=== PATIENT | female | born 1930 | race Caucasian/White ===

== ENCOUNTER 2018-04-10 11:34 | Emergency (ER) | payer MEDICARE ==
[~2018-04-10 11:34] MED LIST: Sodium Chloride 0.9% 1,000 ML BAG ONE; Sodium Chloride 0.9% 500 ML BAG ONE
[2018-04-10] MEDS ORDERED: Pantoprazole 40 MG VIAL ONE ×2 (12:21→12:23)
[2018-04-10 12:45] LABS: ALT (SGPT) 9 U/L (8-55); AST (SGOT) 15 U/L (5-34); Albumin 3.4 g/dL (3.4-4.8); Alkaline Phosphatase 76 U/L (40-150); Anion Gap 12 mmol/L (10-20); Anisocytosis SLIGHT = 6-15 cells (100X) (0-5/hpf); BUN (Urea Nitrogen) 55 mg/dL (9.8-20.1); Band 12 % (5-11); Bilirubin, Total 0.3 mg/dL (0.2-1.2); Calc. Creatinine Clearance 0 mL/min (70-130); Calcium 8.9 mg/dL (7.8-10.44); Carbon Dioxide 22 mmol/L (23-31); Chloride 110 mmol/L (98-107); Eosinophils 7 % (0-10); Estimated GFR-MDRD 46; Globulin 2.9 g/dL (2.4-3.5); Glucose 114 mg/dL (83-110); Hemoglobin 7.7 g/dL (12.0-16.0); INR-International Normal Ratio 1.2; Lymphocytes 11 % (21-51); MDiff Complete? YES; Mean Corpuscular HGB CONC 32.8 g/dL (32.0-36.0); Mean Corpuscular Hemoglobin 27.9 pg (27.0-31.0); Mean Platelet Volume 7.5 fL (7.4-10.4); Monocytes 5 % (0-10); Neutrophil 64 % (42-75); PLT Morphology Comment Appears Adequate; PTT 36.5 SEC (22.9-36.1); Platelet Count 233 thou/uL (130-400); Potassium 4.2 mmol/L (3.5-5.1); Protein, Total 6.3 g/dL (6.0-8.3); RBC Distribution Width 13.1 % (11.5-14.5); Red Blood Cell (RBC) Count 2.75 mill/uL (4.20-5.40); Sodium 140 mmol/L (136-145); White Blood Cell (WBC) Count 16.8 thou/uL (4.8-10.8)
[2018-04-10] MEDS ORDERED: Lidocaine 1% w/Epinephrine 1:100K 30 ML VIAL ONE (13:37)
== END 2018-04-10 13:23 | disposition short-term general hospital (02) ==
LOC: MADERS 11:34
DX: K92.2 Gastrointestinal hemorrhage, unspecified (principal); D64.9 Anemia, unspecified; I10 Essential (primary) hypertension; E78.5 Hyperlipidemia, unspecified; G47.00 Insomnia, unspecified; F32.9 Major depressive disorder, single episode, unspecified; K21.9 Gastro-esophageal reflux disease without esophagitis; Z79.899 Other long term (current) drug therapy
CPT/HCPCS: 36415; 80053; 82274; 85025; 85610; 85730; 86850; 86900; 86901; 96365; C9113; J2001; J7050

== ENCOUNTER 2018-04-25 17:00 | Inpatient (IN) | payer MEDICARE ==
[2018-04-25] MEDS ORDERED: AMOXicillin 250 MG CAP PO SCH (22:00)
[2018-04-25] MEDS ORDERED: hydrALAZINE 25 MG TAB PO SCH (22:00)
[2018-04-25] MEDS ORDERED: Pantoprazole 40 MG GRANULES PACKET PO SCH (22:15)
[2018-04-25] MEDS: AMOXicillin 250 MG CAP PO SCH (22:18)
[2018-04-26 05:58] LABS: #Basophils 0.2 thou/uL (0.0-0.2); #Eosinphils 0.2 thou/uL (0.0-0.7); #Lymphocytes 1.4 thou/uL (1.20-3.40); #Monocytes 1.2 thou/uL (0.11-0.59); #Neutrophils 8.2 thou/uL (1.40-6.50); %Basophils 1.6 % (0.0-1.0); %Eosinophils 2.1 % (0.0-10.0); %Lymphocytes 12.9 % (21.0-51.0); %Monocytes 10.2 % (0.0-10.0); %Neutrophils 73.2 % (42.0-75.0); Hemoglobin 10.2 g/dL (12.0-16.0); Mean Corpuscular HGB CONC 34.1 g/dL (32.0-36.0); Mean Corpuscular Hemoglobin 29.9 pg (27.0-31.0); Mean Corpuscular Volume 87.7 fL (78.0-98.0); Platelet Count 322 thou/uL (130-400); RBC Distribution Width 14.4 % (11.5-14.5); White Blood Cell (WBC) Count 11.2 thou/uL (4.8-10.8)
[2018-04-26 06:13] LABS: ALT (SGPT) 14 U/L (8-55); AST (SGOT) 21 U/L (5-34); Albumin 3.1 g/dL (3.4-4.8); Alkaline Phosphatase 69 U/L (40-150); Anion Gap 16 mmol/L (10-20); BUN (Urea Nitrogen) 22 mg/dL (9.8-20.1); Bilirubin, Total 0.4 mg/dL (0.2-1.2); Calc. Creatinine Clearance 33 mL/min (70-130); Calcium 8.9 mg/dL (7.8-10.44); Carbon Dioxide 25 mmol/L (23-31); Chloride 102 mmol/L (98-107); Estimated GFR-MDRD 58; Globulin 2.7 g/dL (2.4-3.5); Glucose 71 mg/dL (83-110); Potassium 3.5 mmol/L (3.5-5.1); Protein, Total 5.8 g/dL (6.0-8.3); Sodium 139 mmol/L (136-145)
[2018-04-26] MEDS: Spironolactone 25 MG TAB PO SCH (08:00)
[2018-04-26] MEDS ORDERED: Clarithromycin 250 MG/5 ML Oral Suspension ONE ×2 (08:00)
[2018-04-26] MEDS: AMOXicillin 250 MG CAP PO SCH ×2 (08:03→20:35)
[2018-04-26] MEDS: Amiodarone 200 MG TAB PO SCH (08:03)
[2018-04-26] MEDS: hydrALAZINE 25 MG TAB PO SCH ×3 (08:04→20:36)
[2018-04-26] MEDS: Hydrochlorothiazide 25 MG TAB PO SCH (08:04)
[2018-04-26] MEDS: Docusate Sodium 100 MG/10 ML UDCUP PO SCH (08:04)
[2018-04-26] MEDS: Aspirin 81 mg Enteric Coated Tablet PO SCH (08:04)
[2018-04-26] MEDS: Pantoprazole 40 MG GRANULES PACKET PO SCH ×2 (08:05→20:40)
[2018-04-26] MEDS: Clarithromycin 250 MG/5 ML Oral Suspension PO SCH ×2 (08:12→20:38)
[2018-04-26] MEDS ORDERED: Clarithromycin 500 MG TAB PO SCH (09:00)
[2018-04-26] MEDS ORDERED: Aspirin 81 mg Enteric Coated Tablet PO SCH (09:00)
--- NOTE | 2018-04-26 10:02 | HP ---
CHIEF COMPLAINT: Weakness. PRESENT ILLNESS: The patient is an 87-year-old white female who has a history of hypertension, dysph agia, gastroesophageal reflux disease who lives in her home alone, but has a daughter who comes in an d assists her. She ordinarily is independent of her ADLs. Over the last year she has had some gener al decline in her strength and appetite with some gradual weight loss. The patient presented to [facility] on 04/10/2018 with episodes of multiple bloody bowel movements, weakness and some alteration in her mental status. She was accompanied by her daughter and appeared very pale and weak and was take n to the emergency room and subsequently hospitalized at [facility] where she remained unt il 04/25/2018. The patient was found to have a severe gastrointestinal bleed with initial hemoglobin of 7.2. The patient required transfusions with 2 units of blood with stabilization of her H&H and h emoglobin improved to 10.1 and remained stable throughout the remainder of her hospitalization. Kirk nick, Dr. Hoang, reservoir engineering manager, saw her for the bleed and she underwent an EGD on 018. She was found to have 3 gastric ulcers in the antrum that showed no evidence of any recent blee ding. She had one at the pylorus also own with no signs of any bleeding. Her biopsy of the area was positive for H. pylori. She was initiated on treatment for H. pylori with clarithromycin, amoxicill in, and Protonix for a 2-week period beginning on 04/25/2018. The patient also underwent a colonosco py on 04/11/2018 and was found to have blood adherent to the colon from the rectum to the right colon . The source of the bleeding was felt to probably be either diverticular or small bowel, did not thi nk the bleeding was coming from the gastric ulcers. Her bleeding stopped and there was no recurrence . Her hospitalization was complicated by new onset atrial fibrillation that initially was treated wi th IV Cardizem and then was started on amiodarone with gradual conversion to a sinus rhythm. She was seen by mentally impaired teacher and an echocardiogram on 04/12/2018 showed atrial fib with an ejection fraction of 60-65%. She had enlargement of the left atrium and mitral and tricuspid regurgitation of a moder ate degree. This was controlled and she was discharged on amiodarone. The patient also had some fev er and also significant leukocytosis with a left shift. Dr. Lomeli, Infectious Disease, saw her and t hought that she might have a left basilar pneumonia that was causing this. She was treated with anti biotics and this gradually improved. The patient has had a long history of dysphagia that she is man aged with a change in her method of eating and types of food that she eats. She underwent a modified barium swallow that showed penetration, but no aspiration. She was placed on a mechanical soft diet with nectar thickened liquids with instructions to eat sitting upright, small bites and no straws. The patient was left extremely weak and had not really been up other than in a chair. She was transf erred to [facility] on the early evening of 04/25/2018 for purpose of physical therapy, occupat ional therapy in an effort to improve her strength, deconditioning, and functional capability with joseph hopes to returning to her home. The patient was seen early on the morning of 04/26/2018, said she was feeling a lot better, but just weak. PAST HISTORY: Hospitalized at [facility] from 04/10/2018 to 04/25/2018 for GI bleed requi ring transfusion with 2 units of blood. Source of the bleed was secondary to either diverticular or small bowel. She was also found to have gastric ulcer that was H-pyloric positive for which treatmen t was started on 04/25/2018. There was no evidence of bleeding from these ulcers. She also had the atrial fib. See specifics of this admission in the present illness. The patient has a history of se lisa hypertension that has been difficult to manage. She had new onset atrial fibrillation during re cent hospitalization, venous insufficiency, gastroesophageal reflux disease, hypothyroidism, hyperlip idemia, constipation, loss of weight. She has had an upper EGD with esophageal dilation in 2017. joseph has had a suprapubic urethropexy in 05/1993. She had surgery for a heel spur in 1993. PRESENT MEDICINES: Acetaminophen 325 mg 2 every 4 hours as needed, amiodarone 200 mg daily, amoxicil danna 1000 mg b.i.d. x14 days, started on 04/25/2018, Clarithromycin 500 mg b.i.d. for 14 days, started on 04/25/2018. Aspirin 81 mg daily, pantoprazole 40 mg b.i.d. x14 days, started on 04/25/2018, docu sate sodium 50 mg daily, hydralazine 75 mg t.i.d., metoprolol succinate 50 mg daily, spironolactone 1 2.5 mg daily. ALLERGIES: IODINE, INDOCIN, PRILOSEC, VALIUM, BACTRIM, AMBIEN, CODEINE, PENICILLIN G., CELEXA, PROZA C, COZAAR, ADALAT, BENAZEPRIL, PAXIL causes diarrhea. The benazepril causes a cough. The Adalat cau ses swelling and dizziness, Norvasc, dizziness, MiraLax, swelling. REVIEW OF SYSTEMS: GENERAL: The patient said she is weak and just has not been able to get up and do much of anything s tonie this recent hospitalization. HEAD AND NECK: No complaints. PULMONARY: No shortness of breath. CARDIOVASCULAR: No complaints. GASTROINTESTINAL: The patient said she has not had a bowel movement for the last day or so. The pat ient said she has not had any more blood in her stools. The patient said she has some trouble swallo wing, it seems to be worse if she turns leftward and better when she tucks her chin. ADLs: Ordinari ly the patient is ambulatory, but a little unsteady. She is usually able to dress herself and bathe herself. She is usually continent of urine and stools. HABITS: Alcohol none. Tobacco none. SOCIAL HISTORY: The patient lives alone. Her daughter lives close and checks on her and assists her if needed. CODE STATUS: Full code. PHYSICAL EXAMINATION: GENERAL: Shows an asthenic built 87-year-old white female who is alert, appears very weak, but in no acute distress. VITAL SIGNS: Temperature is 97.9, pulse 55, respirations 18, O2 sat 94%, blood pressure 191/78. Her weight is 107. HEAD: Normocephalic. EYES: Pupils are equal, round, and reactive. EARS: TMs are clear. NOSE: Normal. MOUTH AND THROAT: Normal. NECK: Carotids are equal and strong, no bruits. Thyroid not enlarged. LUNGS: Lungs are clear. There are some rales at the left posterior base. HEART: Regular rate with a grade 3/6 blowing systolic murmur heard best at the apex. ABDOMEN: Soft, no organomegaly, nor areas of tenderness. EXTREMITIES: No edema. SKIN: No rash. NEUROLOGIC: The patient is alert, oriented x3 with generalized weakness, but no focal weakness. IMPRESSION: 1. Generalized weakness and deconditioning with marked decline in her functional capability. A. Etiology recent hospitalization for upper gastrointestinal bleed. B. Now such that she requires assistance with all her ambulation and not ambulatory as of 04/26/2018 . 2. Hospitalized at [facility] from 04/10/2018 to 04/25/2018 for upper GI bleed, new onset atrial fibrillation, severe hypertension and dysphagia. 3. Recent gastrointestinal bleed. A. Required hospitalization from 04/10/2018 to 04/25/[address] [facility]. B. Required transfusion with 2 units of packed RBCs. C. Etiology secondary to probable diverticular versus small bowel hemorrhage. 4. Stable with hemoglobin of 10.1 as of 04/26/2018. 5. Gastric ulcers. A. EGD on 04/11/2018 showed gastric ulcers x3 at the antrum and 1 at the pylorus with no evidence of bleeding or recent bleeding. B. Biopsy positive for H. pylori. C. Treatment initiated with amoxicillin 1000 mg b.i.d. x2 weeks, clarithromycin 500 mg b.i.d. for 2 weeks, Protonix 40 mg b.i.d. for 2 weeks on 04/25/2018. 6. Diverticular disease of the colon. A. EGD on 04/11/2018 showed extensive blood throughout the colon secondary to probable recent divert icular bleed or a small bowel bleed. B. Presently asymptomatic. No evidence of bleeding and hemoglobin stable as of 04/26/2018. 7. Atrial fibrillation. A. New onset during hospitalization at [facility] on 04/10/2018. B. Managed with amiodarone and metoprolol with conversion to a sinus rhythm. C. Not a candidate for anticoagulation due to recent GI bleed. 8. Severe hypertension. 9. Dysphagia. A. A modified barium swallow on 04/17/2018 showed penetration, but no aspiration. B. Managed with mechanical soft diet with nectar thickened liquids and no straws. 10. Severe hypertension. 11. Gastroesophageal reflux disease. 12. Hypothyroidism. PLAN: The patient has been admitted to [facility] for the purpose of physical therapy and occu pational therapy in an effort to try to improve her strength, deconditioning, stabilize her gait and improve her general functional capability via her hope that she could improve such that she can retur n to her home. The patient is being treated for H. pylori and has a 2 week course with amoxicillin, clarithromycin, and Protonix was started on 04/25/2018 and will be given for a 14-day period. We jd l continue her routine medication, monitor blood pressure. Her lab this morning showed a H&H of 10.2 and 29.8, white cell count 11,200 with 73% segs, 13% lympho cytes, and a platelet count of 322,000. Her sodium was 139, potassium 3.5, BUN 22, creatinine 0.93, GFR 58, glucose 71, albumin 3.1. CODE STATUS: Full code.
[2018-04-26] MEDS ORDERED: Sterile Water Irrigation 250 ML BOT ONE (11:41)
[2018-04-26] MEDS: Acetaminophen 325 MG TAB PO PRN (20:41)
[2018-04-27] MEDS: Levothyroxine Sodium 50 MCG TAB PO SCH (05:12)
[2018-04-27] MEDS: Aspirin 81 mg Enteric Coated Tablet PO SCH (08:44)
[2018-04-27] MEDS: Spironolactone 25 MG TAB PO SCH (08:44)
[2018-04-27] MEDS: Amiodarone 200 MG TAB PO SCH (08:44)
[2018-04-27] MEDS: Hydrochlorothiazide 25 MG TAB PO SCH (08:45)
[2018-04-27] MEDS: AMOXicillin 250 MG CAP PO SCH ×2 (08:45→20:38)
[2018-04-27] MEDS: Clarithromycin 250 MG/5 ML Oral Suspension PO SCH ×2 (08:45→20:41)
[2018-04-27] MEDS: Docusate Sodium 100 MG/10 ML UDCUP PO SCH (08:45)
[2018-04-27] MEDS: hydrALAZINE 25 MG TAB PO SCH ×3 (08:45→20:38)
[2018-04-27] MEDS: Pantoprazole 40 MG GRANULES PACKET PO SCH ×2 (08:46→20:38)
--- NOTE | 2018-04-27 09:48 | PRG ---
DATE OF SERVICE: 04/27/2018 SUBJECTIVE: The patient said she is feeling a little better today. She did walk a little bit with p hysical therapy yesterday. OBJECTIVE: GENERAL: The patient is sitting up in a bedside chair. She is smiling, looks better. She appears i n no distress. Her temperature is 98, pulse 51, blood pressure was 190/81 last evening. This mornin g's is pending. O2 sat 94% on room air. Lungs are clear. Heart, regular rate. Extremities, no mandeep ma. ASSESSMENT: 1. Generalized weakness and deconditioning with marked decline in her functional capability. A. Etiology recent hospitalization for upper gastrointestinal bleed. B. Requiring assistance with all her ADLs as of 04/26/2018. C. Improved as of 04/27/2018. 2. Hospitalized at [facility] from 04/10/2018 to 04/25/2018 for upper GI bleed, new onset atrial fibrillation, severe hypertension and dysphagia. 3. Recent gastrointestinal bleed. A. Required hospitalization from 04/10/2018 to 04/25/2018 at [facility]. B. Required transfusion with 2 units of packed RBCs. C. Etiology secondary to probable diverticular versus small bowel hemorrhage. 4. Stable with hemoglobin of 10.1 as of 04/26/2018. 5. Gastric ulcers. A. EGD on 04/11/2018 showed gastric ulcers x3 at the antrum and 1 at the pylorus with no evidence of bleeding or recent bleeding. B. Biopsy positive for H. pylori. C. Treatment initiated with amoxicillin 1000 mg b.i.d. x2 weeks, clarithromycin 500 mg b.i.d. for 2 weeks, Protonix 40 mg b.i.d. for 2 weeks on 04/25/2018. 6. Diverticular disease of the colon. A. EGD on 04/11/2018 showed extensive blood throughout the colon secondary to probable recent divert icular bleed or a small bowel bleed. B. Presently asymptomatic. No evidence of bleeding and hemoglobin stable as of 04/26/2018. 7. Atrial fibrillation. A. New onset during hospitalization at [facility] on 04/10/2018. B. Managed with amiodarone and metoprolol with conversion to a sinus rhythm. C. Not a candidate for anticoagulation due to recent GI bleed. 8. Severe hypertension. A. Difficult to control with many drug allergies. 9. Dysphagia. A. A modified barium swallow on 04/17/2018 showed penetration, but no aspiration. B. Managed with mechanical soft diet with nectar thickened liquids and no straws. 10. Severe hypertension. 11. Gastroesophageal reflux disease. 12. Hypothyroidism. PLAN: Continue present care. Continue PT and OT.
[2018-04-28] MEDS: Levothyroxine Sodium 50 MCG TAB PO SCH (05:15)
[2018-04-28] MEDS: Docusate Sodium 100 MG/10 ML UDCUP PO SCH (07:51)
[2018-04-28] MEDS: Aspirin 81 mg Enteric Coated Tablet PO SCH (07:51)
[2018-04-28] MEDS: Clarithromycin 250 MG/5 ML Oral Suspension PO SCH ×2 (07:51→20:21)
[2018-04-28] MEDS: AMOXicillin 250 MG CAP PO SCH ×2 (07:51→20:20)
[2018-04-28] MEDS: Amiodarone 200 MG TAB PO SCH (07:51)
[2018-04-28] MEDS: Spironolactone 25 MG TAB PO SCH (07:51)
[2018-04-28] MEDS: Hydrochlorothiazide 25 MG TAB PO SCH (07:52)
[2018-04-28] MEDS: hydrALAZINE 25 MG TAB PO SCH ×3 (07:52→20:20)
[2018-04-28] MEDS: Pantoprazole 40 MG GRANULES PACKET PO SCH ×2 (07:52→20:20)
--- NOTE | 2018-04-28 15:15 | PRG ---
DATE OF SERVICE: 04/28/2018 SUBJECTIVE: The patient said she does not feel as well today, nothing specific. She denies any shor tness of breath or any chest pain. Physical therapy is working with her and yesterday she walked up to 150 feet twice. She required minimum to moderate assistance with transfers. OBJECTIVE: GENERAL: The patient is sitting up in a chair, is alert, appears comfortable in no distress. VITAL SIGNS: Shows a temperature of 97.6, pulse 49, blood pressure 168/70, earlier 121/58, respirati ons 20, O2 sat 91%-95% on room air. LUNGS: Clear. HEART: Regular rate. EXTREMITIES: No edema. ASSESSMENT: 1. Generalized weakness and deconditioning with marked decline in her functional capability. A. Etiology recent hospitalization for upper gastrointestinal bleed. B. Requiring assistance with all her ADLs as of 04/26/2018. C. Improved, walking up to 150 feet with a rolling walker. Transferring with minimum to moderate as sistance as of 04/28/2018. 2. Hospitalized at [facility] from 04/10/2018 to 04/25/2018 for upper GI bleed, new onset atrial fibrillation, severe hypertension and dysphagia. 3. Recent gastrointestinal bleed. A. Required hospitalization from 04/10/2018 to 04/25/2018 at [facility]. B. Required transfusion with 2 units of packed RBCs. C. Etiology secondary to probable diverticular versus small bowel hemorrhage. D. Asymptomatic. No evidence of any bleeding as of 04/28/2018. 4. Stable with hemoglobin of 10.1 as of 04/26/2018. 5. Gastric ulcers. A. EGD on 04/11/2018 showed gastric ulcers x3 at the antrum and 1 at the pylorus with no evidence of bleeding or recent bleeding. B. Biopsy positive for H. pylori. C. Treatment initiated with amoxicillin 1000 mg b.i.d. x2 weeks, clarithromycin 500 mg b.i.d. for 2 weeks, Protonix 40 mg b.i.d. for 2 weeks on 04/25/2018. 6. Diverticular disease of the colon. A. EGD on 04/11/2018 showed extensive blood throughout the colon secondary to probable recent divert icular bleed or a small bowel bleed. B. Presently asymptomatic. No evidence of bleeding and hemoglobin stable as of 04/26/2018. 7. Atrial fibrillation. A. New onset during hospitalization at [facility] on 04/10/2018. B. Managed with amiodarone and metoprolol with conversion to a sinus rhythm. C. Not a candidate for anticoagulation due to recent GI bleed. D. Rate controlled with mild bradycardia. [employer] Pre Cooker encouraged continued use of the metoprolol t o ensure rate is controlled. No symptoms associated with bradycardia as of 04/28/2018. 8. Severe hypertension. A. Controlled, improved as of 04/28/2018. 9. Dysphagia. A. A modified barium swallow on 04/17/2018 showed penetration, but no aspiration. B. Managed with mechanical soft diet with nectar thickened liquids and no straws. 10. Severe hypertension. 11. Gastroesophageal reflux disease. 12. Hypothyroidism. PLAN: Continue present care. Continue PT.
[2018-04-29] MEDS: Levothyroxine Sodium 50 MCG TAB PO SCH (05:41)
[2018-04-29] MEDS: Pantoprazole 40 MG GRANULES PACKET PO SCH ×2 (09:21→20:24)
[2018-04-29] MEDS: Aspirin 81 mg Enteric Coated Tablet PO SCH (09:21)
[2018-04-29] MEDS: Hydrochlorothiazide 25 MG TAB PO SCH (09:21)
[2018-04-29] MEDS: Spironolactone 25 MG TAB PO SCH (09:22)
[2018-04-29] MEDS: hydrALAZINE 25 MG TAB PO SCH ×3 (09:22→20:24)
[2018-04-29] MEDS: Amiodarone 200 MG TAB PO SCH (09:23)
[2018-04-29] MEDS: AMOXicillin 250 MG CAP PO SCH ×2 (09:23→20:24)
[2018-04-29] MEDS: Clarithromycin 250 MG/5 ML Oral Suspension PO SCH ×2 (09:25→20:38)
[2018-04-29] MEDS: Docusate Sodium 100 MG/10 ML UDCUP PO SCH (09:33)
[2018-04-29] MEDS ORDERED: Clarithromycin 250 MG/5 ML Oral Suspension ONE (20:34)
[2018-04-30] MEDS: Levothyroxine Sodium 50 MCG TAB PO SCH (05:22)
[2018-04-30] MEDS: Pantoprazole 40 MG GRANULES PACKET PO SCH ×2 (09:24→20:45)
[2018-04-30] MEDS: Aspirin 81 mg Enteric Coated Tablet PO SCH (09:24)
[2018-04-30] MEDS: AMOXicillin 250 MG CAP PO SCH ×2 (09:24→20:33)
[2018-04-30] MEDS: Amiodarone 200 MG TAB PO SCH (09:24)
[2018-04-30] MEDS: hydrALAZINE 25 MG TAB PO SCH ×3 (09:24→20:33)
[2018-04-30] MEDS: Docusate Sodium 100 MG/10 ML UDCUP PO SCH (09:25)
[2018-04-30] MEDS: Spironolactone 25 MG TAB PO SCH (09:25)
[2018-04-30] MEDS: Hydrochlorothiazide 25 MG TAB PO SCH (09:25)
[2018-04-30] MEDS: Clarithromycin 250 MG/5 ML Oral Suspension PO SCH ×2 (09:27→20:35)
[2018-05-01] MEDS: Levothyroxine Sodium 50 MCG TAB PO SCH (05:24)
[2018-05-01] MEDS: Spironolactone 25 MG TAB PO SCH (08:20)
[2018-05-01] MEDS: Amiodarone 200 MG TAB PO SCH (08:20)
[2018-05-01] MEDS: AMOXicillin 250 MG CAP PO SCH ×2 (08:20→20:07)
[2018-05-01] MEDS: Hydrochlorothiazide 25 MG TAB PO SCH (08:21)
[2018-05-01] MEDS: hydrALAZINE 25 MG TAB PO SCH ×3 (08:21→20:09)
[2018-05-01] MEDS: Aspirin 81 mg Enteric Coated Tablet PO SCH (08:21)
[2018-05-01] MEDS: Clarithromycin 250 MG/5 ML Oral Suspension PO SCH ×2 (08:29→20:08)
--- NOTE | 2018-05-01 09:30 | PRG ---
DATE OF SERVICE: 05/01/2018 SUBJECTIVE: The patient said she is doing okay, but complaining of her feet being a little sore. Sh e has had no swelling or redness. OBJECTIVE: The patient is alert, appears comfortable, but very weak. Her temperature is 98.9, pulse 58, blood pressure 158/71, respirations 16, O2 sat 94% on room air. Lungs are clear. Heart, regula r rate. Extremities, no edema. Feet have no swelling. ASSESSMENT: 1. Generalized weakness and deconditioning with marked decline in her functional capability. A. Etiology recent hospitalization for upper gastrointestinal bleed. B. Requiring assistance with all her ADLs as of 04/26/2018. C. Improved, walking up to 150 feet with a rolling walker. Transferring with minimum to moderate as sistance as of 05/01/2018. 2. Hospitalized at [facility] from 04/10/2018 to 04/25/2018 for upper GI bleed, new onset atrial fibrillation, severe hypertension and dysphagia. 3. Recent gastrointestinal bleed. A. Required hospitalization from 04/10/2018 to 04/25/2018 at [facility]. B. Required transfusion with 2 units of packed RBCs. C. Etiology secondary to probable diverticular versus small bowel hemorrhage. D. Asymptomatic. No evidence of any bleeding as of 05/01/2018. 4. Stable with hemoglobin of 10.1 as of 04/26/2018. 5. Gastric ulcers. A. EGD on 04/11/2018 showed gastric ulcers x3 at the antrum and 1 at the pylorus with no evidence of bleeding or recent bleeding. B. Biopsy positive for H. pylori. C. Treatment initiated with amoxicillin 1000 mg b.i.d. x2 weeks, clarithromycin 500 mg b.i.d. for 2 weeks, Protonix 40 mg b.i.d. for 2 weeks on 04/25/2018. 6. Diverticular disease of the colon. A. EGD on 04/11/2018 showed extensive blood throughout the colon secondary to probable recent divert icular bleed or a small bowel bleed. B. Presently asymptomatic. No evidence of bleeding and hemoglobin stable as of 04/26/2018. 7. Atrial fibrillation. A. New onset during hospitalization at [facility] on 04/10/2018. B. Managed with amiodarone and metoprolol with conversion to a sinus rhythm. C. Not a candidate for anticoagulation due to recent GI bleed. D. Rate controlled with mild bradycardia. [employer] Hospitalist encouraged continued use of the metoprolol t o ensure rate is controlled. No symptoms associated with bradycardia as of 04/28/2018. 8. Severe hypertension. A. Controlled, improved as of 04/28/2018. 9. Dysphagia. A. A modified barium swallow on 04/17/2018 showed penetration, but no aspiration. B. Managed with mechanical soft diet with nectar thickened liquids and no straws. 11. Gastroesophageal reflux disease. 12. Hypothyroidism. PLAN: Continue present care. The patient has Tylenol that she can use when her feet are sore. This exam did not disclose any abnormality. Source may be from neuropathy.
--- NOTE | 2018-05-01 09:30 | PRG ---
DATE OF SERVICE: 04/29/2018 SUBJECTIVE: The patient said she slept good last night. Yesterday, she worked with physical therapy and was able to walk up to 150 feet twice with a walker with wheels. She requires minimum to modera te assistance with transfer. OBJECTIVE: GENERAL: The patient is lying in bed, alert, looks comfortable, in no distress. VITAL SIGNS: Shows a temperature of 97.9, pulse 51, respirations 18, O2 sat 96% on room air, blood p ressure 192/80. She has not had her morning meds. Last evening, pressure 132/78. LUNGS: Clear. HEART: Regular rate. EXTREMITIES: No edema. (01:58) ASSESSMENT: 1. Generalized weakness and deconditioning with marked decline in her functional capability. A. Etiology recent hospitalization for upper gastrointestinal bleed. B. Requiring assistance with all her ADLs as of 04/26/2018. C. Improved, walking up to 150 feet with a rolling walker. Transferring with minimum to moderate as sistance as of 04/29/2018. 2. Hospitalized at [facility] from 04/10/2018 to 04/25/2018 for upper GI bleed, new onset atrial fibrillation, severe hypertension and dysphagia. 3. Recent gastrointestinal bleed. A. Required hospitalization from 04/10/2018 to 04/25/2018 at [facility]. B. Required transfusion with 2 units of packed RBCs. C. Etiology secondary to probable diverticular versus small bowel hemorrhage. D. Asymptomatic. No evidence of any bleeding as of 04/28/2018. 4. Stable with hemoglobin of 10.1 as of 04/26/2018. 5. Gastric ulcers. A. EGD on 04/11/2018 showed gastric ulcers x3 at the antrum and 1 at the pylorus with no evidence of bleeding or recent bleeding. B. Biopsy positive for H. pylori. C. Treatment initiated with amoxicillin 1000 mg b.i.d. x2 weeks, clarithromycin 500 mg b.i.d. for 2 weeks, Protonix 40 mg b.i.d. for 2 weeks on 04/25/2018. 6. Diverticular disease of the colon. A. EGD on 04/11/2018 showed extensive blood throughout the colon secondary to probable recent divert icular bleed or a small bowel bleed. B. Presently asymptomatic. No evidence of bleeding and hemoglobin stable as of 04/26/2018. 7. Atrial fibrillation. A. New onset during hospitalization at [facility] on 04/10/2018. B. Managed with amiodarone and metoprolol with conversion to a sinus rhythm. C. Not a candidate for anticoagulation due to recent GI bleed. D. Rate controlled with mild bradycardia. Lining Marker encouraged continued use of the metoprolol t o ensure rate is controlled. No symptoms associated with bradycardia as of 04/29/2018. 8. Severe hypertension. A. Controlled, improved as of 04/28/2018. 9. Dysphagia. A. A modified barium swallow on 04/17/2018 showed penetration, but no aspiration. B. Managed with mechanical soft diet with nectar thickened liquids and no straws. 10. Gastroesophageal reflux disease. 11. Hypothyroidism. PLAN: Continue present care. Continue PT and OT.
[2018-05-01] MEDS: Docusate Sodium 100 MG/10 ML UDCUP PO SCH (10:56)
[2018-05-02] MEDS: Levothyroxine Sodium 50 MCG TAB PO SCH (05:42)
[2018-05-02] MEDS: Spironolactone 25 MG TAB PO SCH (08:22)
[2018-05-02] MEDS: Amiodarone 200 MG TAB PO SCH (08:23)
[2018-05-02] MEDS: Docusate Sodium 100 MG/10 ML UDCUP PO SCH (08:23)
[2018-05-02] MEDS: Clarithromycin 250 MG/5 ML Oral Suspension PO SCH ×2 (08:23→20:32)
[2018-05-02] MEDS: hydrALAZINE 25 MG TAB PO SCH ×3 (08:23→20:32)
[2018-05-02] MEDS: Aspirin 81 mg Enteric Coated Tablet PO SCH (08:23)
[2018-05-02] MEDS: AMOXicillin 250 MG CAP PO SCH ×2 (08:23→20:31)
[2018-05-02] MEDS: Hydrochlorothiazide 25 MG TAB PO SCH (08:24)
--- NOTE | 2018-05-02 10:36 | PRG ---
DATE OF SERVICE: 05/02/2018 SUBJECTIVE: The patient said she is feeling better. She wants to go home, but she is not able to ta ke care of herself. Her daughter is with her and said that she lives by herself and she comes and he lps. Her daughter still works. The patient is not strong enough to manage and take care of herself. The patient and daughter also said that after visiting with them about her code status that she is a DNR. OBJECTIVE: The patient looks a little better. She appears in no distress. Her temperature is 98.1, pulse 54, blood pressure 195/80, earlier was 161/74, respirations 16, O2 sat 92% on room air. Lungs were clear. Heart, regular rate with a grade 3/6 systolic ejection murmur heard best at the base. The patient has a systolic murmur, grade 3/6 that is heard at the base and apex of the heart. [place]ch[place] rdiogram that was done on 04/12/2018 had shown mild mitral regurgitation, mild to moderate tricuspid regurgitation, EJ of 60-65% and moderately to severe dilated left atrium and diastolic dysfunction. Extremities, no edema. ASSESSMENT: 1. Generalized weakness and deconditioning with marked decline in her functional capability. A. Etiology recent hospitalization for upper gastrointestinal bleed. B. Requiring assistance with all her ADLs as of 04/26/2018. C. Improved, but still not able to manage herself at home with her present functional capabilities. 2. Hospitalized at [facility] from 04/10/2018 to 04/25/2018 for upper GI bleed, new onset atrial fibrillation, severe hypertension and dysphagia. 3. Recent gastrointestinal bleed. A. Required hospitalization from 04/10/2018 to 04/25/2018 at [facility]. B. Required transfusion with 2 units of packed RBCs. C. Etiology secondary to probable diverticular versus small bowel hemorrhage. D. Asymptomatic. No evidence of any bleeding as of 05/01/2018. 4. Stable with hemoglobin of 10.1 as of 04/26/2018. 5. Gastric ulcers. A. EGD on 04/11/2018 showed gastric ulcers x3 at the antrum and 1 at the pylorus with no evidence of bleeding or recent bleeding. B. Biopsy positive for H. pylori. C. Treatment initiated with amoxicillin 1000 mg b.i.d. x2 weeks, clarithromycin 500 mg b.i.d. for 2 weeks, Protonix 40 mg b.i.d. for 2 weeks on 04/25/2018. 6. Diverticular disease of the colon. A. EGD on 04/11/2018 showed extensive blood throughout the colon secondary to probable recent divert icular bleed or a small bowel bleed. B. Presently asymptomatic. No evidence of bleeding and hemoglobin stable as of 04/26/2018. 7. Atrial fibrillation. A. New onset during hospitalization at [facility] on 04/10/2018. B. Managed with amiodarone and metoprolol with conversion to a sinus rhythm. C. Not a candidate for anticoagulation due to recent GI bleed. D. Rate controlled with mild bradycardia. Lawn Service Supervisor encouraged continued use of the metoprolol t o ensure rate is controlled. No symptoms associated with bradycardia as of 04/28/2018. 8. Severe hypertension. A. The patient still has periodic episodes of marked elevation of BP as of 05/02/2018. 9. Dysphagia. A. A modified barium swallow on 04/17/2018 showed penetration, but no aspiration. B. Managed with mechanical soft diet with nectar thickened liquids and no straws. 11. Gastroesophageal reflux disease. 12. Hypothyroidism. 13. Diastolic dysfunction. A. No evidence of acute congestive heart failure. PLAN: I visited with patient and her daughter, indicated that the patient's functional capability is not to where she could manage at her home by herself. The patient needs continue PT, OT once she do es go home, then she will need to have someone there with her to assist her and assist with not only her ADLs, but her instrumental ADLs. Continue PT, OT. Also, the patient has a DNR after visiting with her daughter and patient.
[2018-05-02] MEDS ORDERED: Clarithromycin 250 MG/5 ML Oral Suspension ONE (20:44)
[2018-05-03] MEDS: Levothyroxine Sodium 50 MCG TAB PO SCH (05:15)
[2018-05-03] MEDS: Hydrochlorothiazide 25 MG TAB PO SCH (08:14)
[2018-05-03] MEDS: Spironolactone 25 MG TAB PO SCH (08:14)
[2018-05-03] MEDS: AMOXicillin 250 MG CAP PO SCH ×2 (08:14→20:30)
[2018-05-03] MEDS: Docusate Sodium 100 MG/10 ML UDCUP PO SCH (08:14)
[2018-05-03] MEDS: Aspirin 81 mg Enteric Coated Tablet PO SCH (08:16)
[2018-05-03] MEDS: Amiodarone 200 MG TAB PO SCH (08:16)
[2018-05-03] MEDS: hydrALAZINE 25 MG TAB PO SCH ×3 (08:16→20:31)
[2018-05-03] MEDS: Clarithromycin 250 MG/5 ML Oral Suspension PO SCH ×2 (08:16→20:32)
--- NOTE | 2018-05-03 11:23 | PRG ---
DATE OF SERVICE: 05/03/2018 SUBJECTIVE: The patient said she is doing okay. She had no complaint. She said she did not rest as well last night. She continued to work with physical therapy. She and her daughter are considering post-hospital arrangements. OBJECTIVE: The patient lying in bed, alert, appears comfortable in no distress. Temp 97.4, pulse 72 , blood pressure 152/60, respirations 16, O2 sat 95% on room air. Lungs are clear. Heart, regular r ate. Extremities, no edema. ASSESSMENT: 1. Generalized weakness and deconditioning with marked decline in her functional capability. A. Etiology recent hospitalization for upper gastrointestinal bleed. B. Requiring assistance with all her ADLs as of 04/26/2018. C. Improved, but still not able to manage herself at home with her present functional capabilities a s of 05/03/2018. 2. Hospitalized at [facility] from 04/10/2018 to 04/25/2018 for upper GI bleed, new onset atrial fibrillation, severe hypertension and dysphagia. 3. Recent gastrointestinal bleed. A. Required hospitalization from 04/10/2018 to 04/25/[address] [facility]. B. Required transfusion with 2 units of packed RBCs. C. Etiology secondary to probable diverticular versus small bowel hemorrhage. D. Asymptomatic. No evidence of any bleeding as of 05/01/2018. 4. Stable with hemoglobin of 10.1 as of 04/26/2018. 5. Gastric ulcers. A. EGD on 04/11/2018 showed gastric ulcers x3 at the antrum and 1 at the pylorus with no evidence of bleeding or recent bleeding. B. Biopsy positive for H. pylori. C. Treatment initiated with amoxicillin 1000 mg b.i.d. x2 weeks, clarithromycin 500 mg b.i.d. for 2 weeks, Protonix 40 mg b.i.d. for 2 weeks on 04/25/2018. 6. Diverticular disease of the colon. A. EGD on 04/11/2018 showed extensive blood throughout the colon secondary to probable recent divert icular bleed or a small bowel bleed. B. Presently asymptomatic. No evidence of bleeding and hemoglobin stable as of 05/03/2018. 7. Atrial fibrillation. A. New onset during hospitalization at [facility] on 04/10/2018. B. Managed with amiodarone and metoprolol with conversion to a sinus rhythm. C. Not a candidate for anticoagulation due to recent GI bleed. D. Rate controlled with mild bradycardia. Theatre Professor encouraged continued use of the metoprolol t o ensure rate is controlled. No symptoms associated with bradycardia as of 04/28/2018. 8. Severe hypertension. A. Controlled, improved as of 05/03/2018. 9. Dysphagia. A. A modified barium swallow on 04/17/2018 showed penetration, but no aspiration. B. Managed with mechanical soft diet with nectar thickened liquids and no straws. 11. Gastroesophageal reflux disease. 12. Hypothyroidism. 13. Diastolic dysfunction. A. No evidence of acute congestive heart failure as of 05/03/2018. PLAN: Continue PT and OT.
[2018-05-03 18:54] VITALS: BMI 21.3
[2018-05-04] MEDS: Levothyroxine Sodium 50 MCG TAB PO SCH (05:18)
[2018-05-04] MEDS: Spironolactone 25 MG TAB PO SCH (08:07)
[2018-05-04] MEDS: Aspirin 81 mg Enteric Coated Tablet PO SCH (08:08)
[2018-05-04] MEDS: AMOXicillin 250 MG CAP PO SCH ×2 (08:08→20:44)
[2018-05-04] MEDS: Amiodarone 200 MG TAB PO SCH (08:08)
[2018-05-04] MEDS: Clarithromycin 250 MG/5 ML Oral Suspension PO SCH ×2 (08:08→20:45)
[2018-05-04] MEDS: Docusate Sodium 100 MG/10 ML UDCUP PO SCH (08:09)
[2018-05-04] MEDS: hydrALAZINE 25 MG TAB PO SCH ×3 (08:09→20:44)
[2018-05-04] MEDS: Hydrochlorothiazide 25 MG TAB PO SCH (08:13)
--- NOTE | 2018-05-04 10:05 | PRG ---
DATE OF SERVICE: 05/04/2018 SUBJECTIVE: The patient says she is doing okay. She is making some progress with physical therapy, but still needs some little contact assistance with walking. She also still needs some help with her transfers. OBJECTIVE: The patient is sitting up in a chair. She appears comfortable, in no distress. Vital si gns show a temperature 98.4, pulse 55, blood pressure 168/70, respirations 16, O2 sat 93%. Lungs stevan ar. Heart, regular rate. Extremities, no edema. ASSESSMENT: 1. Generalized weakness and deconditioning with marked decline in her functional capability. A. Etiology recent hospitalization for upper gastrointestinal bleed. B. Requiring assistance with all her ADLs as of 04/26/2018. C. Improved, still requires some mild contact assistance while walking, but this is improving. She s till requires some assistance with transfers as of 05/04/2018. 2. Hospitalized at [facility] from 04/10/2018 to 04/25/2018 for upper GI bleed, new onset atrial fibrillation, severe hypertension and dysphagia. 3. Recent gastrointestinal bleed. A. Required hospitalization from 04/10/2018 to 04/25/2018 at [facility]. B. Required transfusion with 2 units of packed RBCs. C. Etiology secondary to probable diverticular versus small bowel hemorrhage. D. Asymptomatic. No evidence of any bleeding as of 05/04/2018. 4. Stable with hemoglobin of 10.1 as of 04/26/2018. 5. Gastric ulcers. A. EGD on 04/11/2018 showed gastric ulcers x3 at the antrum and 1 at the pylorus with no evidence of bleeding or recent bleeding. B. Biopsy positive for H. pylori. C. Treatment initiated with amoxicillin 1000 mg b.i.d. x2 weeks, clarithromycin 500 mg b.i.d. for 2 weeks, Protonix 40 mg b.i.d. for 2 weeks on 04/25/2018. 6. Diverticular disease of the colon. A. EGD on 04/11/2018 showed extensive blood throughout the colon secondary to probable recent divert icular bleed or a small bowel bleed. B. Presently asymptomatic. No evidence of bleeding and hemoglobin stable as of 05/03/2018. 7. Atrial fibrillation. A. New onset during hospitalization at [facility] on 04/10/2018. B. Managed with amiodarone and metoprolol with conversion to a sinus rhythm. C. Not a candidate for anticoagulation due to recent GI bleed. D. Rate controlled with mild bradycardia. Criminal Researcher encouraged continued use of the metoprolol t o ensure rate is controlled. No symptoms associated with bradycardia as of 04/28/2018. 8. Severe hypertension. A. Controlled, improved as of 05/04/2018. 9. Dysphagia. A. A modified barium swallow on 04/17/2018 showed penetration, but no aspiration. B. Managed with mechanical soft diet with nectar thickened liquids and no straws. 11. Gastroesophageal reflux disease. 12. Hypothyroidism. 13. Diastolic dysfunction. A. No evidence of acute congestive heart failure as of 05/04/2018. PLAN: Continue present care. Continue PT and OT.
[2018-05-05] MEDS: Levothyroxine Sodium 50 MCG TAB PO SCH (06:21)
[2018-05-05] MEDS: Docusate Sodium 100 MG/10 ML UDCUP PO SCH (07:47)
[2018-05-05] MEDS: Spironolactone 25 MG TAB PO SCH (07:51)
[2018-05-05] MEDS: hydrALAZINE 25 MG TAB PO SCH ×3 (07:55→21:20)
[2018-05-05] MEDS: Aspirin 81 mg Enteric Coated Tablet PO SCH (08:00)
[2018-05-05] MEDS: Hydrochlorothiazide 25 MG TAB PO SCH (08:01)
[2018-05-05] MEDS: Amiodarone 200 MG TAB PO SCH (08:02)
--- NOTE | 2018-05-05 11:01 | PRG ---
DATE OF SERVICE: 05/05/2018 SUBJECTIVE: The patient has been up in a chair for a while this morning, but was tired and has gone back to bed. She did not have any specific complaints other than she is just tired. She is working with physical therapy and she is walking up to 150 feet with a rolling walker and standby assistance. She is requiring some assistance with transfers, but gradually improving. She wants to go home, bu t lives alone and condition is not such that she would be able to manage by herself in her home. OBJECTIVE: The patient is lying in bed. She looks very comfortable. Her temperature is 97.8, pulse 52, blood pressure 188/86, last evening was 122/58, respirations 20, O2 sat 93% on room air. Her jonnathan ngs were clear. Heart, regular rate. Extremities, no edema. ASSESSMENT: 1. Generalized weakness and deconditioning with marked decline in her functional capability. A. Etiology recent hospitalization for upper gastrointestinal bleed. B. Requiring assistance with all her ADLs as of 04/26/2018. C. Improving. Walking better with a rolling walker, requiring standby assistance, improving with he r transfer, but still requiring some assistance as of 05/05/2018. 2. Hospitalized at [facility] from 04/10/2018 to 04/25/2018 for upper GI bleed, new onset atrial fibrillation, severe hypertension and dysphagia. 3. Recent gastrointestinal bleed. A. Required hospitalization from 04/10/2018 to 04/25/2018 at [facility]. B. Required transfusion with 2 units of packed RBCs. C. Etiology secondary to probable diverticular versus small bowel hemorrhage. D. Asymptomatic. No evidence of any bleeding as of 05/05/2018. 4. Stable with hemoglobin of 10.1 as of 04/26/2018. 5. Gastric ulcers. A. EGD on 04/11/2018 showed gastric ulcers x3 at the antrum and 1 at the pylorus with no evidence of bleeding or recent bleeding. B. Biopsy positive for H. pylori. C. Treatment initiated with amoxicillin 1000 mg b.i.d. x2 weeks, clarithromycin 500 mg b.i.d. for 2 weeks, Protonix 40 mg b.i.d. for 2 weeks on 04/25/2018. D. Asymptomatic as of 05/05/2018. 6. Diverticular disease of the colon. A. EGD on 04/11/2018 showed extensive blood throughout the colon secondary to probable recent divert icular bleed or a small bowel bleed. B. Presently asymptomatic. No evidence of bleeding and hemoglobin stable as of 05/03/2018. 7. Atrial fibrillation. A. New onset during hospitalization at [facility] on 04/10/2018. B. Managed with amiodarone and metoprolol with conversion to a sinus rhythm. C. Not a candidate for anticoagulation due to recent GI bleed. D. Rate controlled with mild bradycardia. Plumbing Inspector encouraged continued use of the metoprolol t o ensure rate is controlled. No symptoms associated with bradycardia as of 04/28/2018. 8. Severe hypertension. A. Controlled, improved as of 05/04/2018. 9. Dysphagia. A. A modified barium swallow on 04/17/2018 showed penetration, but no aspiration. B. Managed with mechanical soft diet with nectar thickened liquids and no straws. 11. Gastroesophageal reflux disease. 12. Hypothyroidism. 13. Diastolic dysfunction. A. No evidence of acute congestive heart failure as of 05/05/2018. PLAN: Continue PT, OT. Hopefully, within another week her condition will be strong enough such that she can be discharged. I feel like that she will need help in the home. The patient will complete her 2 week course of medication for the H. pylori on 05/08/2018.
[2018-05-05] MEDS: AMOXicillin 250 MG CAP PO SCH ×2 (11:39→21:19)
[2018-05-05] MEDS: Clarithromycin 250 MG/5 ML Oral Suspension PO SCH ×2 (11:39→21:20)
[2018-05-06] MEDS: Levothyroxine Sodium 50 MCG TAB PO SCH (05:39)
[2018-05-06] MEDS: Spironolactone 25 MG TAB PO SCH (08:47)
[2018-05-06] MEDS: AMOXicillin 250 MG CAP PO SCH ×2 (08:49→20:57)
[2018-05-06] MEDS: Amiodarone 200 MG TAB PO SCH (08:49)
[2018-05-06] MEDS: Aspirin 81 mg Enteric Coated Tablet PO SCH (08:50)
[2018-05-06] MEDS: Clarithromycin 250 MG/5 ML Oral Suspension PO SCH ×2 (08:53→20:58)
[2018-05-06] MEDS: Hydrochlorothiazide 25 MG TAB PO SCH (08:54)
[2018-05-06] MEDS: hydrALAZINE 25 MG TAB PO SCH ×3 (08:55→20:58)
[2018-05-06] MEDS: Docusate Sodium 100 MG/10 ML UDCUP PO SCH (09:03)
[2018-05-07] MEDS: Levothyroxine Sodium 50 MCG TAB PO SCH (05:47)
[2018-05-07] MEDS: Spironolactone 25 MG TAB PO SCH (08:59)
[2018-05-07] MEDS: Amiodarone 200 MG TAB PO SCH (09:00)
[2018-05-07] MEDS: AMOXicillin 250 MG CAP PO SCH ×2 (09:01→20:41)
[2018-05-07] MEDS: Aspirin 81 mg Enteric Coated Tablet PO SCH (09:01)
[2018-05-07] MEDS: Docusate Sodium 100 MG/10 ML UDCUP PO SCH (09:02)
[2018-05-07] MEDS: Clarithromycin 250 MG/5 ML Oral Suspension PO SCH ×2 (09:02→20:41)
[2018-05-07] MEDS: Hydrochlorothiazide 25 MG TAB PO SCH (09:03)
[2018-05-07] MEDS: hydrALAZINE 25 MG TAB PO SCH ×3 (09:03→20:41)
[2018-05-08] MEDS: Acetaminophen 325 MG TAB PO PRN (00:44)
[2018-05-08] MEDS: Levothyroxine Sodium 50 MCG TAB PO SCH (05:08)
[2018-05-08 05:16] LABS: #Basophils 0.1 thou/uL (0.0-0.2); #Eosinphils 0.1 thou/uL (0.0-0.7); #Lymphocytes 1.9 thou/uL (1.20-3.40); %Eosinophils 0.8 % (0.0-10.0); %Monocytes 8.3 % (0.0-10.0); %Neutrophils 73.9 % (42.0-75.0); Hemoglobin 12.4 g/dL (12.0-16.0); Mean Corpuscular HGB CONC 32.8 g/dL (32.0-36.0); Mean Corpuscular Hemoglobin 28.8 pg (27.0-31.0); Mean Corpuscular Volume 87.7 fL (78.0-98.0); Mean Platelet Volume 8.3 fL (7.4-10.4); Platelet Count 248 thou/uL (130-400); RBC Distribution Width 14.5 % (11.5-14.5); Red Blood Cell (RBC) Count 4.31 mill/uL (4.20-5.40); White Blood Cell (WBC) Count 12.1 thou/uL (4.8-10.8)
[2018-05-08 05:32] LABS: Anion Gap 16 mmol/L (10-20); BUN (Urea Nitrogen) 52 mg/dL (9.8-20.1); Calc. Creatinine Clearance 16 mL/min (70-130); Calcium 9.9 mg/dL (7.8-10.44); Carbon Dioxide 27 mmol/L (23-31); Chloride 107 mmol/L (98-107); Estimated GFR-MDRD 25; Glucose 108 mg/dL (83-110); Potassium 3.1 mmol/L (3.5-5.1); Sodium 147 mmol/L (136-145)
[2018-05-08] MEDS: Spironolactone 25 MG TAB PO SCH (07:50)
[2018-05-08] MEDS: Docusate Sodium 100 MG/10 ML UDCUP PO SCH (07:52)
[2018-05-08] MEDS: AMOXicillin 250 MG CAP PO SCH ×2 (08:08→20:48)
[2018-05-08] MEDS: hydrALAZINE 25 MG TAB PO SCH ×3 (08:08→20:48)
[2018-05-08] MEDS: Hydrochlorothiazide 25 MG TAB PO SCH (08:09)
[2018-05-08] MEDS: Aspirin 81 mg Enteric Coated Tablet PO SCH (08:09)
[2018-05-08] MEDS: Clarithromycin 250 MG/5 ML Oral Suspension PO SCH ×2 (08:09→20:49)
[2018-05-08] MEDS: Amiodarone 200 MG TAB PO SCH (08:09)
[2018-05-08] MEDS: Polyethylene Glycol 3350 17 GM Packet PO SCH (09:21)
[2018-05-08] MEDS: NS 0.9% w/ 20 MEQ KCL 1,000 ML/1,000 ML BAG IV SCH ×2 (09:23→23:48)
--- NOTE | 2018-05-08 09:28 | PRG ---
DATE OF SERVICE: 05/06/2018 SUBJECTIVE: The patient said she is feeling alright and just wants to go home as soon as possible. OBJECTIVE: GENERAL: The patient is lying in bed, alert, talkative, appears in no distress. VITAL SIGNS: Her blood pressure is 172/65, last evening. This morning's reading is pending. O2 sat 91% on room air, temperature 98.5, pulse 55. LUNGS: Clear. HEART: Regular rate with grade 3/6 systolic murmur heard best at the base of the heart. EXTREMITIES: No edema. ASSESSMENT: 1. Generalized weakness and deconditioning with marked decline in her functional capability. A. Etiology recent hospitalization for upper gastrointestinal bleed. B. Requiring assistance with all her ADLs as of 04/26/2018. C. Improving. Walking better with a rolling walker, requiring standby assistance, improving with he r transfer, but still requiring some assistance as of 05/06/2018. 2. Hospitalized at [facility] from 04/10/2018 to 04/25/2018 for upper GI bleed, new onset atrial fibrillation, severe hypertension and dysphagia. 3. Recent gastrointestinal bleed. A. Required hospitalization from 04/10/2018 to 04/25/2018 at [facility]. B. Required transfusion with 2 units of packed RBCs. C. Etiology secondary to probable diverticular versus small bowel hemorrhage. D. Asymptomatic. No evidence of any bleeding as of 05/06/2018. 4. Stable with hemoglobin of 10.1 as of 04/26/2018. 5. Gastric ulcers. A. EGD on 04/11/2018 showed gastric ulcers x3 at the antrum and 1 at the pylorus with no evidence of bleeding or recent bleeding. B. Biopsy positive for H. pylori. C. Treatment initiated with amoxicillin 1000 mg b.i.d. x2 weeks, clarithromycin 500 mg b.i.d. for 2 weeks, Protonix 40 mg b.i.d. for 2 weeks on 04/25/2018. D. Asymptomatic as of 05/05/2018. 6. Diverticular disease of the colon. A. EGD on 04/11/2018 showed extensive blood throughout the colon secondary to probable recent divert icular bleed or a small bowel bleed. B. Presently asymptomatic. No evidence of bleeding and hemoglobin stable as of 05/03/2018. 7. Atrial fibrillation. A. New onset during hospitalization at [facility] on 04/10/2018. B. Managed with amiodarone and metoprolol with conversion to a sinus rhythm. C. Not a candidate for anticoagulation due to recent GI bleed. D. Rate controlled with mild bradycardia. Financial Agent encouraged continued use of the metoprolol t o ensure rate is controlled. No symptoms associated with bradycardia as of 04/28/2018. 8. Severe hypertension. A. Controlled, improved as of 05/04/2018. 9. Dysphagia. A. A modified barium swallow on 04/17/2018 showed penetration, but no aspiration. B. Managed with mechanical soft diet with nectar thickened liquids and no straws. 11. Gastroesophageal reflux disease. 12. Hypothyroidism. 13. Diastolic dysfunction. A. No evidence of acute congestive heart failure as of 05/06/2018. PLAN: Continue PT, OT, this with patient about going home tentatively; we are looking to discharge h er on 05/12/2018. Patient recommended that she have someone with her to assist her. The jayde bolaños said that her daughter will be able to stay with her some. She is happy to stay these additiona l days for physical therapy with the intent of going home on 05/12/2018.
--- NOTE | 2018-05-08 09:35 | PRG ---
DATE OF SERVICE: 05/08/2018 SUBJECTIVE: The patient said she just wants to go home. She has not had a bowel movement for severa l days. She has complained of a little lower abdominal pain. She is not complaining of any dysuria, but does have a lot of desire to urinate frequently. OBJECTIVE: The patient lying in bed. She is weak, but does not appear in any acute distress. Her v ital signs show a temperature 98.8, pulse 58, blood pressure 189/84, respirations 18, O2 sat 95% on r oom air. Lungs are clear. Heart, regular rate. Abdomen is flat. There is no distention. The kirti ent is a little tender in the left lower quadrant, there is no guarding. H&H 12.4 and 37.8, white cell count 12,100 with 74% segs, 16% lymphocytes, and a platelet count of 24 8. Sodium 147, potassium 3.1, BUN 52, creatinine up to 1.89, GFR has dropped to 25. ASSESSMENT: 1. Generalized weakness and deconditioning with marked decline in her functional capability. A. Etiology recent hospitalization for upper gastrointestinal bleed. B. Requiring assistance with all her ADLs as of 04/26/2018. C. Able to walk once she is assisted up using a walker and standby assistance. Still has a lot of w eakness and requires assistance with transfers as 05/08/2018. 2. Hospitalized at [facility] from 04/10/2018 to 04/25/2018 for upper GI bleed, new onset atrial fibrillation, severe hypertension and dysphagia. 3. Recent gastrointestinal bleed. A. Required hospitalization from 04/10/2018 to 04/25/2018 at [facility]. B. Required transfusion with 2 units of packed RBCs. C. Etiology secondary to probable diverticular versus small bowel hemorrhage. D. Asymptomatic. No evidence of any bleeding as of 05/08/2018. 4. Stable with hemoglobin of 10.1 as of 04/26/2018. 5. Gastric ulcers. A. EGD on 04/11/2018 showed gastric ulcers x3 at the antrum and 1 at the pylorus with no evidence of bleeding or recent bleeding. B. Biopsy positive for H. pylori. C. Treatment initiated with amoxicillin 1000 mg b.i.d. x2 weeks, clarithromycin 500 mg b.i.d. for 2 weeks, Protonix 40 mg b.i.d. for 2 weeks on 04/25/2018. D. Asymptomatic as of 05/05/2018. 6. Diverticular disease of the colon. A. EGD on 04/11/2018 showed extensive blood throughout the colon secondary to probable recent divert icular bleed or a small bowel bleed. B. Presently asymptomatic. No evidence of bleeding and hemoglobin stable as of 05/03/2018. 7. Atrial fibrillation. A. New onset during hospitalization at [facility] on 04/10/2018. B. Managed with amiodarone and metoprolol with conversion to a sinus rhythm. C. Not a candidate for anticoagulation due to recent GI bleed. D. Rate controlled with mild bradycardia. Balloon Tester encouraged continued use of the metoprolol t o ensure rate is controlled. No symptoms associated with bradycardia as of 04/28/2018. 8. Severe hypertension. A. Controlled, improved as of 05/04/2018. 9. Dysphagia. A. A modified barium swallow on 04/17/2018 showed penetration, but no aspiration. B. Managed with mechanical soft diet with nectar thickened liquids and no straws. 11. Gastroesophageal reflux disease. 12. Hypothyroidism. 13. Diastolic dysfunction. A. No evidence of acute congestive heart failure as of 05/08/2018. 14. Constipation. 15. Dehydration. A. Manifest with elevation of BUN to 52 from 22, creatinine up to 1.89 and GFR dropping from 58 to 2 5 as of 05/08/2018. 16. Hypokalemia. PLAN: We will check a UA. We will start the patient on MiraLax. The patient is wanting to go home, but not able to manage herself, will need someone to be with her to assist her with her ADLs and ins trumental ADLs. She will talk with her daughter and see if this is feasible, whether or not the daug hter can take care of her at her home. If not, we need to consider retirement placement. Will sta rt the patient on IV fluids for rehydration and we will encourage her to eat.
[2018-05-08 10:49] LABS: Bilirubin Small (Negative); Blood, Urine Negative (Negative); Clarity Clear (Clear); Glucose, Urine (Dipstick) Negative (Negative); Leukocyte Negative (Negative); Nitrite Negative (Negative); Protein, Urine (Dipstick) Trace mg/dL (Neg-Trace); Urobilinogen 0.2 mg/dL (0.2-1.0); pH, Urine 5.5 (5.0-9.0)
[2018-05-08 11:09] LABS: Bacteria/HPF Rare-Few HPF (None Seen); RBC/HPF 0-3 HPF (0-3); Squamous Epithelial 0-3 HPF (0-3); WBC/HPF 0-3 HPF (0-3)
[2018-05-08] MEDS ORDERED: Bisacodyl 10 MG SUPP PR SCH (17:15)
[2018-05-08] MEDS ORDERED: Fleet Enema 133 ML BOT FS SCH (17:15)
[2018-05-09] MEDS: Levothyroxine Sodium 50 MCG TAB PO SCH (05:31)
[2018-05-09 05:46] LABS: #Basophils 0.1 thou/uL (0.0-0.2); #Eosinphils 0.2 thou/uL (0.0-0.7); #Lymphocytes 1.4 thou/uL (1.20-3.40); #Monocytes 0.9 thou/uL (0.11-0.59); #Neutrophils 7.6 thou/uL (1.40-6.50); %Basophils 0.7 % (0.0-1.0); %Eosinophils 1.7 % (0.0-10.0); %Lymphocytes 14.1 % (21.0-51.0); %Monocytes 8.6 % (0.0-10.0); %Neutrophils 74.9 % (42.0-75.0); Mean Corpuscular HGB CONC 31.8 g/dL (32.0-36.0); Mean Corpuscular Hemoglobin 28.3 pg (27.0-31.0); Mean Corpuscular Volume 89.1 fL (78.0-98.0); Mean Platelet Volume 8.6 fL (7.4-10.4); Platelet Count 223 thou/uL (130-400); Red Blood Cell (RBC) Count 3.88 mill/uL (4.20-5.40); White Blood Cell (WBC) Count 10.1 thou/uL (4.8-10.8)
[2018-05-09 05:56] LABS: Anion Gap 15 mmol/L (10-20); BUN (Urea Nitrogen) 47 mg/dL (9.8-20.1); Calc. Creatinine Clearance 20 mL/min (70-130); Calcium 9.2 mg/dL (7.8-10.44); Carbon Dioxide 24 mmol/L (23-31); Chloride 114 mmol/L (98-107); Estimated GFR-MDRD 33; Glucose 101 mg/dL (83-110); Potassium 3.1 mmol/L (3.5-5.1); Sodium 150 mmol/L (136-145)
[2018-05-09] MEDS: Docusate Sodium 100 MG/10 ML UDCUP PO SCH (08:08)
[2018-05-09] MEDS: Polyethylene Glycol 3350 17 GM Packet PO SCH (08:08)
[2018-05-09] MEDS: Amiodarone 200 MG TAB PO SCH (08:09)
[2018-05-09] MEDS: Hydrochlorothiazide 25 MG TAB PO SCH (08:09)
[2018-05-09] MEDS: hydrALAZINE 25 MG TAB PO SCH ×3 (08:09→19:50)
[2018-05-09] MEDS: Aspirin 81 mg Enteric Coated Tablet PO SCH (08:09)
[2018-05-09] MEDS: Spironolactone 25 MG TAB PO SCH (08:10)
[2018-05-09] MEDS: 1/2 NS w/KCL 20 mEq 1,000 ML IV SCH ×2 (08:53→21:30)
--- NOTE | 2018-05-09 09:44 | RAD ---
PORTABLE CHEST: History: Productive cough. Comparison: 04-17-18 FINDINGS: Patient is rotated on this exam. Heart size is enlarged. The pleural and parenchymal changes in the l eft base appear to have probably resolved as compared to that prior examination. It is a little bit m ore difficult to assess due to the rotation. Right lung is clear. IMPRESSION: 1. Resolution of the left sided pleural changes. 2. Mild cardiomegaly. POS: DAY
--- NOTE | 2018-05-09 11:01 | PRG ---
DATE OF SERVICE: 05/09/2018 SUBJECTIVE: The patient does not feel very good. She has had a little productive cough. She is not eating. IV fluids were started yesterday in response to the dehydration and prerenal azotemia. Her daughter is with her this morning. OBJECTIVE: The patient looks very weak, has a productive cough. Her vital signs show a temperature of 97.5, pulse 60, O2 sat 93%, blood pressure 206/62, she has not yet had morning meds. Her lungs ar e clear anteriorly, but has decreased breath sounds at the bases posteriorly. Heart, regular rate, g rade 3/6 systolic murmur. Hemoglobin is 11 and 34.6, down from 12.4, that was probably elevated due to the hemoconcentration. White cell count 10,100 with 75% segs, 14% lymphocytes, and a platelet count of 223,000. Her sodium was up to 150, potassium 3.1, BUN has dropped to 47, creatinine dropped to 1.49. GFR 33. ASSESSMENT: 1. Generalized weakness and deconditioning with marked decline in her functional capability. A. Etiology recent hospitalization for upper gastrointestinal bleed. B. Requiring assistance with all her ADLs as of 04/26/2018. C. Increased weakness particularly since she has become dehydrated and requires assistance with all her ADLs as of 05/09/2018. 2. Hospitalized at [facility] from 04/10/2018 to 04/25/2018 for upper GI bleed, new onset atrial fibrillation, severe hypertension and dysphagia. 3. Recent gastrointestinal bleed. A. Required hospitalization from 04/10/2018 to 04/25/2018 at [facility]. B. Required transfusion with 2 units of packed RBCs. C. Etiology secondary to probable diverticular versus small bowel hemorrhage. D. Asymptomatic. No evidence of any bleeding as of 05/08/2018. E. Hemoglobin 11.0 as of 05/09/2018. 4. Gastric ulcers. A. EGD on 04/11/2018 showed gastric ulcers x3 at the antrum and 1 at the pylorus with no evidence of bleeding or recent bleeding. B. Biopsy positive for H. pylori. C. Treatment initiated with amoxicillin 1000 mg b.i.d. x2 weeks, clarithromycin 500 mg b.i.d. for 2 weeks, Protonix 40 mg b.i.d. for 2 weeks on 04/25/2018. D. Completed a treatment for the Helicobacter pylori. 5. Diverticular disease of the colon. A. EGD on 04/11/2018 showed extensive blood throughout the colon secondary to probable recent divert icular bleed or a small bowel bleed. B. Presently asymptomatic. No evidence of bleeding and hemoglobin stable as of 05/03/2018. 6. Atrial fibrillation. A. New onset during hospitalization at [facility] on 04/10/2018. B. Managed with amiodarone and metoprolol with conversion to a sinus rhythm. C. Not a candidate for anticoagulation due to recent GI bleed. D. Rate controlled with mild bradycardia. Control Systems Technician encouraged continued use of the metoprolol t o ensure rate is controlled. No symptoms associated with bradycardia as of 04/28/2018. 7. Severe hypertension. A. Still has episodes where pressure elevated. 8. Dysphagia. A. A modified barium swallow on 04/17/2018 showed penetration, but no aspiration. B. Managed with mechanical soft diet with nectar thickened liquids and no straws. 9. Gastroesophageal reflux disease. 10. Hypothyroidism. 11. Diastolic dysfunction. A. No evidence of acute congestive heart failure as of 05/09/2018. 12. Constipation. 13. Dehydration. A. Manifest with elevation of BUN to 52 from 22, creatinine up to 1.89 and GFR dropping from 58 to 2 5 as of 05/08/2018. B. The prerenal azotemia has improved a little, but sodium has gone up to 150 as of 05/09/2018. 14. Hypokalemia. A. Persists with a potassium of 3.1. PLAN: The patient has developed a productive cough. We will check a chest x-ray, particularly since there are decreased breath sounds at the bases. We will stop the HCT. We will change IV fluids to half normal saline with 20 mEq of KCl and run at 75 mL per hour. I visited with patient's daughter. The patient tentatively was looking to be discharged on Tuesday05/12/2018, but her condition is too weak and she has these present problems with the dehydration and hyponatremia and prerenal azotemia. Her daughter said that she will not be able to manage her in the home because she is not strong enou gh to have to lift and assist her up. She is going to explore usp placements when she is ev entually ready for discharge.
[2018-05-10] MEDS: Levothyroxine Sodium 50 MCG TAB PO SCH (05:27)
[2018-05-10 05:45] LABS: Anion Gap 13 mmol/L (10-20); BUN (Urea Nitrogen) 32 mg/dL (9.8-20.1); Calc. Creatinine Clearance 30 mL/min (70-130); Calcium 8.7 mg/dL (7.8-10.44); Carbon Dioxide 23 mmol/L (23-31); Chloride 114 mmol/L (98-107); Estimated GFR-MDRD 53; Glucose 72 mg/dL (83-110); Potassium 3.9 mmol/L (3.5-5.1); Sodium 146 mmol/L (136-145)
[2018-05-10] MEDS: Sodium Chloride 0.45% 1,000 ML IV SCH (09:20)
[2018-05-10] MEDS: Docusate Sodium 100 MG/10 ML UDCUP PO SCH (09:21)
[2018-05-10] MEDS: Aspirin 81 mg Enteric Coated Tablet PO SCH (09:21)
[2018-05-10] MEDS: hydrALAZINE 25 MG TAB PO SCH ×3 (09:21→20:38)
[2018-05-10] MEDS: Oxybutynin 5 MG TAB PO SCH (09:21)
[2018-05-10] MEDS: Polyethylene Glycol 3350 17 GM Packet PO SCH (09:21)
[2018-05-10] MEDS: Amiodarone 200 MG TAB PO SCH (09:24)
--- NOTE | 2018-05-10 10:19 | PRG ---
DATE OF SERVICE: 05/10/2018 SUBJECTIVE: The patient has been up this morning, has walked up to 150 feet with physical therapy. She uses a walker and standby assistance. She still requires a great deal help just with her transfe rs. She is wanting to go home, but not able to take care of herself. Her daughter is exploring opti ons including trying to manage her in the home, which she has not optimistic that she could do, and a lso looking at possible halfway placement. The patient still complains of wanting to urinate fr equently, she stated that a bladder scan was done and she had 147 urine in her bladder, but she was t hen able to void. She has not complained of any burning. The nurse said she gets up frequently and complains frequently of difficulty and needing to void. OBJECTIVE: The patient is sitting up in a chair. She looks better, is more interactive, just says s he wants to go home. Her temperature is 97.7, pulse 57, respirations 16, O2 sat 93% on room air, blo od pressure 159/67. Lungs are clear. Heart, regular rate. Extremities, no edema. Urine culture from 05/08/2018 has no growth. This was from the urine straight cath. The urinalysis from that same date showed 0-3 RBCs, 0-3 WBCs. Her sodium today is down to 146, potassium is up to 3 .9, BUN down to 32, creatinine down to 0.9. GFR is up to 53, approaching her baseline. Chest x-ray that was done yesterday showed no infiltrate, no signs of failure. There is some mild ca rdiomegaly. Her cough is better today. ASSESSMENT: 1. Generalized weakness and deconditioning with marked decline in her functional capability. A. Etiology recent hospitalization for upper gastrointestinal bleed. B. Requiring assistance with all her ADLs as of 04/26/2018. C. Improved where she is walking up to 150 feet with her walker and assistance, but still requiring assistance with transfer, still requiring help with all her ADLs as of 05/10/2018. 2. Hospitalized at [facility] from 04/10/2018 to 04/25/2018 for upper GI bleed, new onset atrial fibrillation, severe hypertension and dysphagia. 3. Recent gastrointestinal bleed. A. Required hospitalization from 04/10/2018 to 04/25/2018 at [facility]. B. Required transfusion with 2 units of packed RBCs. C. Etiology secondary to probable diverticular versus small bowel hemorrhage. D. Asymptomatic. No evidence of any bleeding as of 05/10/2018. E. Hemoglobin 11.0 as of 05/09/2018. 4. Gastric ulcers. A. EGD on 04/11/2018 showed gastric ulcers x3 at the antrum and 1 at the pylorus with no evidence of bleeding or recent bleeding. B. Biopsy positive for H. pylori. C. Treatment initiated with amoxicillin 1000 mg b.i.d. x2 weeks, clarithromycin 500 mg b.i.d. for 2 weeks, Protonix 40 mg b.i.d. for 2 weeks on 04/25/2018. D. Completed a treatment for the Helicobacter pylori. 5. Diverticular disease of the colon. A. EGD on 04/11/2018 showed extensive blood throughout the colon secondary to probable recent divert icular bleed or a small bowel bleed. B. Presently asymptomatic. No evidence of bleeding and hemoglobin stable as of 05/03/2018. 6. Atrial fibrillation. A. New onset during hospitalization at [facility] on 04/10/2018. B. Managed with amiodarone and metoprolol with conversion to a sinus rhythm. C. Not a candidate for anticoagulation due to recent GI bleed. D. Rate controlled with mild bradycardia. Cinnamon Grinder encouraged continued use of the metoprolol t o ensure rate is controlled. No symptoms associated with bradycardia as of 04/28/2018. 7. Severe hypertension. A. Blood pressure is better today as of 05/10/2018. 8. Dysphagia. A. A modified barium swallow on 04/17/2018 showed penetration, but no aspiration. B. Managed with mechanical soft diet with nectar thickened liquids and no straws. 9. Gastroesophageal reflux disease. 10. Hypothyroidism. 11. Diastolic dysfunction. A. No evidence of acute congestive heart failure as of 05/10/2018. 12. Constipation. 13. Dehydration. A. Manifest with elevation of BUN to 52 from 22, creatinine up to 1.89 and GFR dropping from 58 to 2 5 as of 05/08/2018. B. The prerenal azotemia has improved a little, but sodium has gone up to 150 as of 05/09/2018. C. BUN is down to 32, creatinine down to 0.99, GFR up to 53 and sodium down to 146. 14. Hypokalemia. A. Improved with potassium of 3.9. PLAN: Overall, the patient looks better. We will change fluids to half normal saline with 10 mEq of KCl and run at only 60 mL per hour. We will recheck electrolytes tomorrow. Anticipate we will be a ble to stop the fluids. The patient has a very overactive bladder with frequent urge to urinate. We will try her on Oxybutynin 5 mg daily. The daughter is exploring post-hospital care including tryin g to manage her at home which she is not optimistic about and entering her in a halfway.
[2018-05-11] MEDS: Sodium Chloride 0.45% 1,000 ML IV SCH (02:45)
[2018-05-11] MEDS: Levothyroxine Sodium 50 MCG TAB PO SCH (05:38)
[2018-05-11 05:59] LABS: Anion Gap 14 mmol/L (10-20); BUN (Urea Nitrogen) 25 mg/dL (9.8-20.1); Calc. Creatinine Clearance 33 mL/min (70-130); Calcium 8.7 mg/dL (7.8-10.44); Carbon Dioxide 20 mmol/L (23-31); Chloride 111 mmol/L (98-107); Estimated GFR-MDRD 61; Glucose 68 mg/dL (83-110); Potassium 4.1 mmol/L (3.5-5.1); Sodium 141 mmol/L (136-145)
[2018-05-11] MEDS: Polyethylene Glycol 3350 17 GM Packet PO SCH (08:11)
[2018-05-11] MEDS: Docusate Sodium 100 MG/10 ML UDCUP PO SCH (08:11)
[2018-05-11] MEDS: hydrALAZINE 25 MG TAB PO SCH ×4 (08:12→20:52)
[2018-05-11] MEDS: Amiodarone 200 MG TAB PO SCH (08:13)
[2018-05-11] MEDS: Aspirin 81 mg Enteric Coated Tablet PO SCH (08:13)
[2018-05-11] MEDS: Oxybutynin 5 MG TAB PO SCH (08:13)
--- NOTE | 2018-05-11 09:28 | PRG ---
DATE OF SERVICE: 05/11/2018 SUBJECTIVE: The patient is doing better, had no cough this morning. Yesterday she walked 125 feet w ith a rolling walker and caregiver assistance, just minimal. She is now just requiring some minimal assistance with transfers. OBJECTIVE: The patient looks better. She appears comfortable in no distress. Her temperature is 97 .9, pulse 52, blood pressure 112/96, respirations 16, O2 sat 95% on room air. Her lungs were clear. Heart, regular rate. Extremities, no edema. Her lab shows her sodium was down to 141, potassium is up to 4.1. Her BUN is down to 25, creatinine 0.88 and GFR 61, back to her baseline, glucose 68. ASSESSMENT: 1. Generalized weakness and deconditioning with marked decline in her functional capability. A. Etiology recent hospitalization for upper gastrointestinal bleed. B. Requiring assistance with all her ADLs as of 04/26/2018. C. Improved where she is walking 125-150 feet with a rolling walker and standby assistance, transfer ring with minimal assistance as of 05/11/2018. 2. Hospitalized at [facility] from 04/10/2018 to 04/25/2018 for upper GI bleed, new onset atrial fibrillation, severe hypertension and dysphagia. 3. Recent gastrointestinal bleed. A. Required hospitalization from 04/10/2018 to 04/25/2018 at [facility]. B. Required transfusion with 2 units of packed RBCs. C. Etiology secondary to probable diverticular versus small bowel hemorrhage. D. Asymptomatic. No evidence of any bleeding as of 05/11/2018. E. Hemoglobin 11.0 as of 05/09/2018. 4. Gastric ulcers. A. EGD on 04/11/2018 showed gastric ulcers x3 at the antrum and 1 at the pylorus with no evidence of bleeding or recent bleeding. B. Biopsy positive for H. pylori. C. Treatment initiated with amoxicillin 1000 mg b.i.d. x2 weeks, clarithromycin 500 mg b.i.d. for 2 weeks, Protonix 40 mg b.i.d. for 2 weeks on 04/25/2018. D. Completed a treatment for the Helicobacter pylori. 5. Diverticular disease of the colon. A. EGD on 04/11/2018 showed extensive blood throughout the colon secondary to probable recent divert icular bleed or a small bowel bleed. B. Presently asymptomatic. No evidence of bleeding and hemoglobin stable as of 05/03/2018. 6. Atrial fibrillation. A. New onset during hospitalization at [facility] on 04/10/2018. B. Managed with amiodarone and metoprolol with conversion to a sinus rhythm. C. Not a candidate for anticoagulation due to recent GI bleed. D. Rate controlled with mild bradycardia. Psych Nurse encouraged continued use of the metoprolol t o ensure rate is controlled. No symptoms associated with bradycardia as of 04/28/2018. 7. Severe hypertension. A. Blood pressure still at times is too high as of 05/11/2018. 8. Dysphagia. A. A modified barium swallow on 04/17/2018 showed penetration, but no aspiration. B. Managed with mechanical soft diet with nectar thickened liquids and no straws. 9. Gastroesophageal reflux disease. 10. Hypothyroidism. 11. Diastolic dysfunction. A. No evidence of acute congestive heart failure as of 05/11/2018. 12. Constipation. 13. Dehydration. A. Manifest with elevation of BUN to 52 from 22, creatinine up to 1.89 and GFR dropping from 58 to 2 5 as of 05/08/2018. B. The prerenal azotemia has improved a little, but sodium has gone up to 150 as of 05/09/2018. C. BUN is down to 32, creatinine down to 0.99, GFR up to 53 and sodium down to 146. D. BUN down to 25, creatinine 0.88, GFR up to 61, sodium down to 141. The dehydration, prerenal azo temia has resolved as of 05/11/2018 as has the hypernatremia. 14. Hypokalemia. A. Resolved with potassium of 4.1. PLAN: Discontinue the IV. Continue PT. I visited with patient's daughter, Abran. The patient's i nsurance called and said they will no longer cover her stay past Tuesday05/12/2018. Her daughter is exploring options and will visit the group home. Also is considering maybe just managing her at [facility] since she is doing better with her walking and transfers. Will increase her hydralazine to 100 mg t.i.d. and discontinue her IV. We will also discontinue her potassium.
[2018-05-11 19:20] VITALS: TEMP 98.2
[2018-05-12] MEDS ORDERED: NS 0.9% w/ 20 MEQ KCL 1,000 ML BAG ONE (10:18)
[2018-05-12] MEDS ORDERED: 1/2 NS ONE (10:18)
[2018-05-12] MEDS ORDERED: Sodium Chloride 0.45% 1,000 ML BAG ONE (10:18)
[2018-05-12] MEDS ORDERED: KCL ONE (10:18)
[2018-05-12] MEDS: Levothyroxine Sodium 50 MCG TAB PO SCH (11:21)
[2018-05-12] MEDS: Docusate Sodium 100 MG/10 ML UDCUP PO SCH (11:22)
[2018-05-12] MEDS: hydrALAZINE 25 MG TAB PO SCH (11:22)
[2018-05-12] MEDS: Amiodarone 200 MG TAB PO SCH (11:22)
[2018-05-12] MEDS: Aspirin 81 mg Enteric Coated Tablet PO SCH (11:22)
[2018-05-12] MEDS: Oxybutynin 5 MG TAB PO SCH (11:23)
[2018-05-12] MEDS: Polyethylene Glycol 3350 17 GM Packet PO SCH (11:23)
[2018-05-12 13:06] VITALS: BP 197/81
--- NOTE | 2018-05-12 14:52 | DIS ---
FINAL DIAGNOSES: 1. Generalized weakness and deconditioning with marked decline in her functional capability. A. Etiology recent hospitalization for upper gastrointestinal bleed. B. Requiring assistance with all her ADLs as of 04/26/2018. C. Improved. Walking up to 125 to 150 feet with a rolling walker and just standby assistance, Allen sferring with minimal assistance as of 05/12/2018. 2. Hospitalized at [facility] from 04/10/2018 to 04/25/2018 for upper GI bleed, new onset atrial fibrillation, severe hypertension and dysphagia. 3. Recent gastrointestinal bleed. A. Required hospitalization from 04/10/2018 to 04/25/2018 at [facility]. B. Required transfusion with 2 units of packed RBCs. C. Etiology secondary to probable diverticular versus small bowel hemorrhage. D. Asymptomatic. No evidence of any bleeding as of 05/12/2018. E. Hemoglobin 11.0 as of 05/09/2018. 4. Gastric ulcers. A. EGD on 04/11/2018 showed gastric ulcers x3 at the antrum and 1 at the pylorus with no evidence of bleeding or recent bleeding. B. Biopsy positive for H. pylori. C. Completed a 2 week course of amoxicillin, clarithromycin and Protonix that was started on 018. D. Completed a treatment for the Helicobacter pylori. 5. Diverticular disease of the colon. A. EGD on 04/11/2018 showed extensive blood throughout the colon secondary to probable recent divert icular bleed or a small bowel bleed. B. Presently asymptomatic. No evidence of bleeding and hemoglobin stable as of 05/12/2018. 6. Atrial fibrillation. A. New onset during hospitalization at [facility] on 04/10/2018. B. Managed with amiodarone and metoprolol with conversion to a sinus rhythm. C. Not a candidate for anticoagulation due to recent GI bleed. D. Rate controlled with mild bradycardia. Warehouse Worker encouraged continued use of the metoprolol t o ensure rate is controlled. No symptoms associated with bradycardia as of 04/28/2018. 7. Severe hypertension. A. Blood pressure still at times is too high as of 05/11/2018. 8. Dysphagia. A. A modified barium swallow on 04/17/2018 showed penetration, but no aspiration. B. Managed with mechanical soft diet with nectar thickened liquids and no straws. 9. Gastroesophageal reflux disease. 10. Hypothyroidism. 11. Diastolic dysfunction. A. No evidence of acute congestive heart failure as of 05/12/2018. 12. Constipation. 13. Dehydration. A. Manifest with elevation of BUN to 52 from 22, creatinine up to 1.89 and GFR dropping from 58 to 2 5 as of 05/08/2018. B. The prerenal azotemia has improved a little, but sodium has gone up to 150 as of 05/09/2018. C. BUN is down to 32, creatinine down to 0.99, GFR up to 53 and sodium down to 146. D. BUN down to 25, creatinine 0.88, GFR up to 61, sodium down to 141. The dehydration, prerenal azo temia has resolved as of 05/11/2018 as has the hypernatremia. 14. Hypokalemia. A. Resolved with potassium of 4.1. SUMMARY: The patient is an 88-year-old white female who has a history of severe hypertension that carvalho s been difficult to control, dysphagia, gastroesophageal reflux disease. She lives at home with her daughter and is independent of her ADLs. Over the last year she has been developing progressive weak ness. Her daughter, Abran, lives near checks on her frequently. The patient also has a history of dysphagia that is managed with a mechanical soft diet with nectar thickened liquids. The patient wa s hospitalized at [facility] for severe lower gastrointestinal bleed from 04/10/2018 until 04/25/2018. The bleeding was thought to probably be diverticular, but she did have on EGD, 3 gastri c ulcers and one of the pyloric channel, there was no evidence of any bleeding or recent bleeding, bu t a biopsy for H. pylori was positive. She was initiated with treatment for the H. pylori with a 2-w [place] course of amoxicillin 1000 mg b.i.d., clarithromycin 500 mg b.i.d. and Protonix 40 mg b.i.d. Thi s was started on 04/25/2018. The patient required transfusion for the bleeding with 2 units of blood . She was left extremely weak and consequently she was transferred to [facility] for extended care for purpose of continual PT and OT in an effort to improve her strength, conditioning and functi onal capability. During her hospitalization, she made very excellent progress with her therapy to ere she was walking up to 150 feet utilizing a rolling walker and just standby assistance. She gradu ally got where she could transfer with minimal assistance, but did requires someone just to stand wit h her and be by her for just assistance. She had no more evidence of any bleeding while in the [facility]. She completed her 2 week course of treatment for the H. pylori and H&H remained stable. Her he moglobin was up to 11 as of 05/09/2018. She did go through a period where she just was not eating or taking fluids and as a result became dehydrated with prerenal azotemia. This was identified on 03/2018 and she required IV fluids for several days. With the IV fluids she improved and began eating , taking fluids better and looked much better. Her BUN dropped from 52 back to around her baseline o f 25 on 05/11/2018. Her creatinine dropped from 1.89 on 05/08/2018 to 0.88 on 05/11/2018. Her GFR i mproved from 25 on 05/08/2018 to 61 on 05/11/2018. She also had elevation of her sodium to 146 and t his normalized and dropped to 141 with IV hydration. She was hypokalemic, but this was replaced with the IV potassium and potassium was up to 4.1. She had no evidence of any acute congestive heart jeffrey lure during her admission. She has a history of a diastolic dysfunction. Her overall condition was one of improvement. Initially arrangements were explored for her to enter the residential, but [facility] would not cover for this. They said her policy had elapsed for nonpayment. Her daughter, Min bassett, said that she would take her home and take care of her. Arrangements were made for home health to see her and assist with her care and continue PT and OT in the home. The patient's blood pressure at times was still high. Her hydralazine was increased to 100 mg t.i.d. She will be followed up in my office in 2 weeks. DISPOSITION DIET: Mechanical soft diet with nectar thickened liquids. No added salt. The patient should take a ll her meals sitting upright and small bites. ACTIVITIES: Ambulate with the use of a walker with wheels and assistance. MEDICATION: Hydralazine 100 mg t.i.d., Colace 50 mg daily, amiodarone 200 mg daily, oxybutynin 5 mg daily, Ecotrin 81 mg daily, MiraLax 17 grams in 8 ounces of water daily, levothyroxine 50 mcg daily, metoprolol succinate ER 50 mg daily, Tylenol 325 mg 2 every 4 hours as needed. FOLLOWUP: Arrangements will be made for home health to see the patient. They will also help with in home PT and OT. We will see the patient in followup in my office in 2 weeks with a BMP and CBC. CODE STATUS: DNR.
== END 2018-05-12 15:35 | disposition home health service (06) | DRG 948 ==
LOC: MADMS 18:22
PROVIDERS: ADMIT Family Medicine; ATTEND Family Medicine
DX: R53.1 Weakness (principal); I50.32 Chronic diastolic (congestive) heart failure; K21.9 Gastro-esophageal reflux disease without esophagitis; I48.91 Unspecified atrial fibrillation; I87.2 Venous insufficiency (chronic) (peripheral); E78.5 Hyperlipidemia, unspecified; E03.9 Hypothyroidism, unspecified; K59.00 Constipation, unspecified; K25.9 Gastric ulcer, unspecified as acute or chronic, without hemorrhage or perforation; K57.30 Diverticulosis of large intestine without perforation or abscess without bleeding; R13.10 Dysphagia, unspecified; E86.0 Dehydration; E87.6 Hypokalemia; I11.0 Hypertensive heart disease with heart failure; Z66 Do not resuscitate
CPT/HCPCS: 36415; 71045; 80048; 80053; 81001; 85025; 87086; A4353; G8978-GP-CL; G8979-GP-CJ; G8987-GO-CL; G8988-GO-CI; G8996-GN-CJ; G8997-GN-CI

== ENCOUNTER 2018-05-17 19:43 | Emergency (ER) | payer MEDICARE ==
--- NOTE | 2018-05-17 20:40 | RAD ---
CHEST ONE VIEW: 05/17/18 HISTORY: Hypertension. Chest pain. COMPARISON: 05/09/18. FINDINGS: The cardiac silhouette is magnified by projection. Pulmonary vasculature remains upper limits of norm al. Mediastinum is midline with aortic calcification. Right lateral costophrenic angle is excluded fr om the image. No lobar consolidation or evidence of pneumothorax. IMPRESSION: Atherosclerosis. Chronic type findings are stable. POS: DAY
[2018-05-17 21:32] LABS: Bilirubin Small (Negative); Blood, Urine Negative (Negative); Clarity Clear (Clear); Glucose, Urine (Dipstick) Negative (Negative); Leukocyte Negative (Negative); Nitrite Negative (Negative); Protein, Urine (Dipstick) Negative (Neg-Trace); Specific Gravity, Urine 1.025 (1.005-1.030); Urobilinogen 0.2 mg/dL (0.2-1.0)
[2018-05-17 21:35] LABS: #Basophils 0.1 thou/uL (0.0-0.2); #Eosinphils 0.1 thou/uL (0.0-0.7); #Lymphocytes 1.5 thou/uL (1.20-3.40); #Monocytes 0.7 thou/uL (0.11-0.59); #Neutrophils 6.7 thou/uL (1.40-6.50); %Basophils 1.1 % (0.0-1.0); %Monocytes 7.5 % (0.0-10.0); %Neutrophils 73.4 % (42.0-75.0); Hemoglobin 11.5 g/dL (12.0-16.0); Mean Corpuscular HGB CONC 32.4 g/dL (32.0-36.0); Mean Corpuscular Hemoglobin 28.5 pg (27.0-31.0); Mean Corpuscular Volume 88.1 fL (78.0-98.0); Mean Platelet Volume 8.1 fL (7.4-10.4); Platelet Count 254 thou/uL (130-400); RBC Distribution Width 15.2 % (11.5-14.5); Red Blood Cell (RBC) Count 4.03 mill/uL (4.20-5.40); White Blood Cell (WBC) Count 9.1 thou/uL (4.8-10.8)
[2018-05-17 21:36] LABS: ALT (SGPT) 11 U/L (8-55); AST (SGOT) 18 U/L (5-34); Albumin 3.6 g/dL (3.4-4.8); Alkaline Phosphatase 72 U/L (40-150); Anion Gap 16 mmol/L (10-20); BUN (Urea Nitrogen) 21 mg/dL (9.8-20.1); Bilirubin, Total 0.4 mg/dL (0.2-1.2); Calc. Creatinine Clearance 0 mL/min (70-130); Calcium 9.2 mg/dL (7.8-10.44); Carbon Dioxide 21 mmol/L (23-31); Chloride 109 mmol/L (98-107); Estimated GFR-MDRD 61; Globulin 2.9 g/dL (2.4-3.5); Glucose 80 mg/dL (83-110); Lipase 19 U/L (8-78); Potassium 3.9 mmol/L (3.5-5.1); Protein, Total 6.5 g/dL (6.0-8.3); Sodium 142 mmol/L (136-145)
[2018-05-17 21:43] LABS: Troponin I 0.022 ng/mL (< 0.028)
== END 2018-05-17 22:20 | disposition home or self-care (01) ==
LOC: MADERS 19:43
DX: I10 Essential (primary) hypertension (principal); R00.1 Bradycardia, unspecified; K21.9 Gastro-esophageal reflux disease without esophagitis; E78.5 Hyperlipidemia, unspecified; E03.9 Hypothyroidism, unspecified; G47.00 Insomnia, unspecified; F32.9 Major depressive disorder, single episode, unspecified; Z79.899 Other long term (current) drug therapy; Z79.82 Long term (current) use of aspirin
CPT/HCPCS: 36415; 51701; 71045; 80053; 81003; 82553; 83690; 84484; 85025; 93005; 94760; A4353

== ENCOUNTER 2018-05-22 12:37 | Emergency (ER) | payer MEDICARE ==
--- NOTE | 2018-05-22 13:31 | RAD ---
CHEST ONE VIEW: History: Dyspnea. Altered mental status. Comparison: 05-17-18 FINDINGS: Cardiac silhouette is magnified by projection. Pulmonary vasculature unremarkable. Mediastinum is mid line with aortic calcification. [place]old overlies the right lower chest. No lobar consolidation or ev idence of pneumothorax. radiation monitor leads overlie the chest. Dystrophic calcification over the ri ght rotator cuff. IMPRESSION: 1. Atherosclerosis. 2. Chronic type findings are stable. POS: DAY
[2018-05-22 13:46] LABS: %Neutrophils 81.8 % (42.0-75.0); Hemoglobin 11.8 g/dL (12.0-16.0); Mean Corpuscular HGB CONC 32.1 g/dL (32.0-36.0); Mean Corpuscular Hemoglobin 28.1 pg (27.0-31.0); Mean Corpuscular Volume 87.7 fL (78.0-98.0); Platelet Count 229 thou/uL (130-400); RBC Distribution Width 15.3 % (11.5-14.5); Red Blood Cell (RBC) Count 4.18 mill/uL (4.20-5.40); White Blood Cell (WBC) Count 11.4 thou/uL (4.8-10.8)
[2018-05-22 13:47] LABS: #Basophils 0.1 thou/uL (0.0-0.2); #Lymphocytes 1.3 thou/uL (1.20-3.40); #Monocytes 0.7 thou/uL (0.11-0.59); #Neutrophils 9.3 thou/uL (1.40-6.50); %Basophils 0.6 % (0.0-1.0); %Lymphocytes 11.7 % (21.0-51.0); %Monocytes 5.9 % (0.0-10.0)
[2018-05-22 13:58] LABS: ALT (SGPT) 11 U/L (8-55); AST (SGOT) 24 U/L (5-34); Albumin 3.7 g/dL (3.4-4.8); Alkaline Phosphatase 62 U/L (40-150); Anion Gap 14 mmol/L (10-20); BUN (Urea Nitrogen) 35 mg/dL (9.8-20.1); Bilirubin, Total 0.6 mg/dL (0.2-1.2); Calc. Creatinine Clearance 0 mL/min (70-130); Calcium 9.3 mg/dL (7.8-10.44); Carbon Dioxide 24 mmol/L (23-31); Chloride 112 mmol/L (98-107); Estimated GFR-MDRD 49; Globulin 2.7 g/dL (2.4-3.5); Glucose 98 mg/dL (83-110); Magnesium 2.5 mg/dL (1.6-2.6); Potassium 3.7 mmol/L (3.5-5.1); Protein, Total 6.4 g/dL (6.0-8.3); Sodium 146 mmol/L (136-145)
[2018-05-22 13:59] LABS: Bilirubin Small (Negative); Blood, Urine Negative (Negative); Clarity Clear (Clear); Glucose, Urine (Dipstick) Negative (Negative); Leukocyte Negative (Negative); Nitrite Negative (Negative); Protein, Urine (Dipstick) 30 mg/dL (Neg-Trace); Specific Gravity, Urine 1.025 (1.005-1.030); Urobilinogen 0.2 mg/dL (0.2-1.0); pH, Urine 5.5 (5.0-9.0)
[2018-05-22 14:00] LABS: CKMB 1.4 ng/mL (0-6.6); Troponin I 0.045 ng/mL (< 0.028)
[2018-05-22] MEDS ORDERED: Furosemide 20 MG/2 ML VIAL ONE (14:18)
[2018-05-22 14:19] LABS: Bacteria/HPF Rare-Few HPF (None Seen); RBC/HPF 0-3 HPF (0-3); Squamous Epithelial 0-3 HPF (0-3); WBC/HPF 0-3 HPF (0-3); Yeast-All Forms 2+ HPF (None Seen)
[2018-05-22] MEDS ORDERED: Nitroglycerin 2% Ointment 1 INCH/1 GM Packet ONE (14:33)
== END 2018-05-22 15:00 | disposition short-term general hospital (02) ==
LOC: MADERS 12:37
DX: E87.70 Fluid overload, unspecified (principal); R07.9 Chest pain, unspecified; R10.9 Unspecified abdominal pain; I10 Essential (primary) hypertension; E78.5 Hyperlipidemia, unspecified; E03.9 Hypothyroidism, unspecified; K21.9 Gastro-esophageal reflux disease without esophagitis; G47.00 Insomnia, unspecified; F32.9 Major depressive disorder, single episode, unspecified; Z79.899 Other long term (current) drug therapy
CPT/HCPCS: 36415; 51701; 71045; 81003; 81015; 82553; 83605; 83735; 83880; 84443; 84484; 85025; 93005; 94760; 96374; A4353; J1940

== ENCOUNTER 2018-05-26 16:01 | Inpatient (IN) | payer MEDICARE ==
[2018-05-26 16:15] VITALS: BMI 17.4
[2018-05-26] MEDS: cloNIDine 0.1 MG TAB PO SCH (20:11)
[2018-05-26] MEDS ORDERED: Prevnar 13-Val Conj/PF 0.5 ML SYRINGE IM ONE (21:00)
[2018-05-27 05:26] LABS: Anion Gap 12 mmol/L (10-20); BUN (Urea Nitrogen) 19 mg/dL (9.8-20.1); Calc. Creatinine Clearance 32 mL/min (70-130); Calcium 8.6 mg/dL (7.8-10.44); Carbon Dioxide 24 mmol/L (23-31); Chloride 119 mmol/L (98-107); Estimated GFR-MDRD 72; Glucose 98 mg/dL (83-110); Potassium 3.7 mmol/L (3.5-5.1); Sodium 151 mmol/L (136-145)
[2018-05-27 05:32] LABS: Anisocytosis SLIGHT = 6-15 cells (100X) (0-5/hpf); Eosinophils 2 % (0-10); Hemoglobin 9.7 g/dL (12.0-16.0); Hypochromia MODERATE=16-30 cells (100X) (0-5/hpf); Lymphocytes 15 % (21-51); MDiff Complete? YES; Mean Corpuscular HGB CONC 31.7 g/dL (32.0-36.0); Mean Corpuscular Hemoglobin 28.1 pg (27.0-31.0); Mean Corpuscular Volume 88.8 fL (78.0-98.0); Mean Platelet Volume 8.7 fL (7.4-10.4); Monocytes 7 % (0-10); Neutrophil 76 % (42-75); PLT Morphology Comment Appears Adequate; Platelet Count 161 thou/uL (130-400); Poikilocytosis SLIGHT = 6-15 cells (100X) (0-5/hpf); RBC Distribution Width 15.3 % (11.5-14.5); RBC Morphology Abnormal; Red Blood Cell (RBC) Count 3.46 mill/uL (4.20-5.40); White Blood Cell (WBC) Count 8.8 thou/uL (4.8-10.8)
[2018-05-27] MEDS: Levothyroxine Sodium 50 MCG TAB PO SCH (05:36)
[2018-05-27] MEDS ORDERED: Spironolactone 25 MG TAB PO SCH (08:00)
[2018-05-27] MEDS: Docusate Sodium 100 MG/10 ML UDCUP PO SCH (08:41)
[2018-05-27] MEDS: cloNIDine 0.1 MG TAB PO SCH ×2 (08:41→20:40)
[2018-05-27] MEDS ORDERED: Oxybutynin 5 MG TAB PO SCH (09:00)
[2018-05-27] MEDS ORDERED: hydrALAZINE 25 MG TAB PO PRN (11:00)
[2018-05-27] MEDS ORDERED: Acetaminophen 325 MG TAB PO PRN (11:03)
[2018-05-27] MEDS: Sodium Chloride 0.45% 1,000 ML IV SCH (11:46)
--- NOTE | 2018-05-27 13:23 | HP ---
Admitted to extended care at [facility] on 05/26/2018 CHIEF COMPLAINT: Weakness. PRESENT ILLNESS: The patient is an 88-year-old white female who has a history of severe hypertension that has been very difficult to control. She also has dysphagia that has been managed with a mechan ical soft diet and nectar-thickened liquids. She has gastroesophageal reflux disease. She had lived at home and was independent of her ADLs. She has a daughter that helped her with her instrumental A DLs. Over the last year, she has had progressive decline in her functional capabilities and strength . The patient had been hospitalized at [facility] for severe lower GI bleed from 04/10/20 18 to 04/25/2018. This was felt to be probably diverticular. She did have an EGD and found to have 3 gastric ulcers that were H. pylori positive, but no signs of any active bleeding or recent bleeding . The colonoscopy showed blood throughout the left colon, but no active bleeding. It was suspected that the bleed came from diverticular source or possible small intestines. She required several faust sfusions and the bleeding ceased. She was treated for the H. pylori with a 2-week course of amoxicil danna, clarithromycin, and Protonix. She was hospitalized at [facility] in extended care from until 05/12/2018, because of the severe weakness and deconditioning. She also has a history of atrial fibrillation that converted to sinus rhythm and had been managed with amiodarone, metoprol ol, but was not a candidate for anticoagulation due to the GI blood loss. The patient improved to wh ere she was able to walk in the hallways, needs a little assistance with transfers, but once up, was able to walk pretty well. She was discharged to her home on 05/12/2018 with her daughter, Sven palomares as her primary caregiver. The patient developed chest pain and hurting all over with severe hy pertension, necessitating rehospitalization at [facility] in [place] from 05/22/2018 to 05/02. Her blood pressure was decreased, but she has very severe malignant hypertension that has be en very difficult to manage with no expectation that this will able to be consistently managed at a l ower level. Cautions had to be given because with aggressive management of her blood pressures, she developed severe orthostatic hypotensive symptoms. The patient had a mild elevation of her troponins . It was felt to be secondary to demand ischemia from the severe hypertension. She was seen in cons ultation by Dr. Caputo, her zipper trimmer who did not feel like she was a candidate for any type of in vasive investigation due to her comorbidities, advanced age and very severe decline in her functional capabilities. During the hospitalization, she did not eat well and has had some mild dehydration. The patient was left very weak and it was elected to send her to custodial at [facility] care at [facility] on the late afternoon of 05/26/2018. Since she has been hospitalized here at [facility], she is eating very little. [facility] has reviewed her records and the patient had been o n a pureed diet during her recent hospitalization that was progressed to a mechanical soft with groun d meat consistency, which this will be increased to. The patient though has not eaten much and was n oted that her weight loss from 05/12/2018 when discharge from the hospital here at [place] to th e present has been 20 pound decrease. The patient was seen early on the morning of 05/27/2018. She was lying in her bed with her eyes clos ed. She opened her eyes when spoken to and recognized me. She looks like she has had significant we ight loss since my last visit on 05/12/2018. She is very weak and spoke in a very soft, low-pitched voice, so it was a little hard to understand. She said, she was not hurting anywhere because really did not know the specifics of what had happened. She did say things had gone wonderful when she was back at her home with her daughter. She really had no complaints other than requesting watermelon. PAST HISTORY: Please see the present illness for the recent hospitalizations starting with her GI bl eed on 04/10/2018. The patient has 3 gastric ulcers found on EGD on 04/11/2018 that showed no eviden ce of active bleeding or recent bleed, H. pylori positive, treated with 2 week course of amoxicillin, clarithromycin, and pantoprazole. The patient has malignant hypertension. She had new onset atrial fibrillation during hospitalization on April that has been managed with metoprolol and amiodaron e. Metoprolol has since been stopped due to bradycardia. She has gastroesophageal reflux disease, h ypothyroidism, hyperlipidemia, and constipation. The patient had EGD with esophageal dilation in . She has had suprapubic urethropexy in 1992. She had surgery for heel spur in 1993. PRESENT MEDICINES: Aspirin 81 mg daily, clonidine 0.2 mg b.i.d., docusate sodium 50 mg daily, isosor bide mononitrate extended release 30 mg daily, levothyroxine 50 mcg daily, oxybutynin 5 mg daily, spi ronolactone 25 mg b.i.d., hydralazine 100 mg t.i.d., hydralazine 25 mg t.i.d. as needed for blood pre ssures greater than 180. ALLERGIES: IODINE, PRILOSEC, VALIUM, BACTRIM, AMBIEN, CODEINE, PENICILLIN G, CELEXA, PROZAC, COZAAR, ADALAT, BENAZEPRIL, PAXIL, AMLODIPINE, MIRALAX. REVIEW OF SYSTEMS: General: Patient did very weak. She said she is feeling alright. Head and Neck : No complaints. Pulmonary: No shortness of breath. Cardiovascular: No chest pain. Gastrointest inal: Eating very poorly, 20 pound weight loss from 05/12/2018 until 05/26/2018. Genitourinary: During the hospital, she had some urinary retention requiring insertion of a León ca theter. Musculoskeletal: The patient has been very weak, so she has just been at bed rest. HABITS: Tobacco, none. Alcohol, none. ADLs: Prior to the hospitalization, the patient can ambulate with the use of a rolling walker, requi red some assistance with transfers. Requires assistance with bathing, dressing and requires assistan ce with eating. She is usually continent of stools and has some episodes of urinary incontinence. R equires someone to manage all her instrumental ADLs. SOCIAL HISTORY: The patient had been living in her home independently with her daughter assisting wh en needed prior to the hospitalization on 04/2018. She is back in her home with her daughter served as her primary caregiver since 05/12/2018. CODE STATUS: DNR. PHYSICAL EXAMINATION: GENERAL: Shows a very weak 88-year-old white female who is lying in bed. Her eyes were closed, but opened them and tried talking to me some in a very low voice which is a little hard to understand. S he has had noticeable loss of weight. She has a diet radiant appearance. VITAL SIGNS: Shows a temperature of 96.7, pulse 49, respirations 16, O2 sat 93% on room air, blood p ressure 175/72. Her weight is 86 pounds. HEAD: Normocephalic. EYES: Pupils are equal, round, and reactive. EARS: TMs clear. NOSE: Normal. MOUTH AND THROAT: Mucus membranes are dry. There is a little yellowish material on the tongue. NECK: Carotids are equal and strong, no bruits. Thyroid not enlarged. LUNGS: Clear. HEART: The patient has a grade 3/6 systolic murmur that can be heard best at the base of the heart. There was a regular rate. ABDOMEN: Soft, nontender. SKIN: There are no open wounds. Skin turgor is diminished. NEUROLOGIC: The patient is alert, but extremely weak. EXTREMITIES: She can move all extremities but with difficulty. There is no focal weakness. The low er extremities have no edema. IMPRESSION: 1. Severe generalized weakness and deconditioning with marked decline in her functional capabilities . A. Marked decline since her discharge from extended care at [facility] on 05/12/2018 where she is presently not ambulatory as of 05/27/2018. B. Requires assistance with all her ADLs. 2. Hospitalized at [facility] from 05/22/2018 until 05/26/2018 for malignant hypertension with urgency presenting with chest pain with mild elevation of troponins due to demand ischemia. 3. Weight loss. A. A 20 pound weight loss from 05/12/2018 until 05/26/2018. B. Etiology secondary to probably anorexia and her dysphagia. 4. Malignant hypertension. A. Very difficult to manage. B. Prone to orthostatic hypotension. 5. History of atrial fibrillation that converted to sinus rhythm. A. New onset during the hospitalization on 04/10/2018. B. Managed with amiodarone and metoprolol with conversion to sinus rhythm. C. Metoprolol has been stopped due to bradycardia. D. Not a candidate for anticoagulants due to the gastrointestinal bleed. 6. Dysphagia. A. Previously managed with mechanical soft diet and nectar-thickened liquids, no straws. B. Modified barium swallow on 04/17/2018 showed penetration, but no aspiration. 7. Hospitalized at [facility] from 04/10/2018 to 04/25/2018 for upper gastrointestinal bl eed. A. Etiology probably a diverticular versus small bowel. B. Required transfusion of 2 units of packed RBCs. C. Esophagogastroduodenoscopy showed gastric ulcers with no active bleeding or evidence of recent bl eed. Biopsy showed to be H. pylori positive treated with 2 week course of amoxicillin, clarithromyci n, and pantoprazole. D. Asymptomatic. No evidence of bleeding as of 05/27/2018. 8. Diverticular disease of the colon. 9. Hypothyroidism. 10. Diastolic dysfunction. A. No evidence of acute congestive heart failure as of 05/26/2018. 11. Dehydration. A. Complicated by hypernatremia with a sodium of 151. 12. History of gastroesophageal reflux disease. PLAN: The patient has been admitted to the hospital at [facility] to extended care. Presently , the patient is dehydrated with some hypernatremia. We will cautiously hydrate the patient. We jd l continue her routine medicines as outlined in her present illness. The metoprolol has been inadver tently restarted and will be stopped. The patient will be given IV fluids with half normal saline. Physical therapy and OT will work with her. The patient has shown marked decline and failure to thri ve over the last few months. Her outlook is very poor, but we will give her an opportunity to see if she can be stabilized. Her care post-hospitalization will probably require penitentiary placement u nless the daughter feels like that she is able to manage her in the home. CODE STATUS: DNR.
[2018-05-27] MEDS: hydrALAZINE 25 MG TAB PO SCH ×2 (15:13→20:39)
[2018-05-27] MEDS ORDERED: Sodium Chloride 0.45% 1,000 ML BAG ONE (20:24)
[2018-05-28] MEDS: Sodium Chloride 0.45% 1,000 ML IV SCH ×2 (00:16→12:02)
[2018-05-28] MEDS: Levothyroxine Sodium 50 MCG TAB PO SCH (05:07)
[2018-05-28 05:13] LABS: #Basophils 0.1 thou/uL (0.0-0.2); #Eosinphils 0.3 thou/uL (0.0-0.7); #Lymphocytes 1.5 thou/uL (1.20-3.40); #Monocytes 0.5 thou/uL (0.11-0.59); #Neutrophils 6.4 thou/uL (1.40-6.50); %Basophils 0.8 % (0.0-1.0); %Eosinophils 3.3 % (0.0-10.0); %Lymphocytes 17.1 % (21.0-51.0); %Monocytes 5.8 % (0.0-10.0); %Neutrophils 73.1 % (42.0-75.0); Hemoglobin 10.1 g/dL (12.0-16.0); Mean Corpuscular HGB CONC 31.8 g/dL (32.0-36.0); Mean Corpuscular Hemoglobin 28.8 pg (27.0-31.0); Mean Corpuscular Volume 90.7 fL (78.0-98.0); Mean Platelet Volume 8.5 fL (7.4-10.4); Platelet Count 135 thou/uL (130-400); RBC Distribution Width 15.9 % (11.5-14.5); Red Blood Cell (RBC) Count 3.49 mill/uL (4.20-5.40); White Blood Cell (WBC) Count 8.8 thou/uL (4.8-10.8)
[2018-05-28 05:27] LABS: Anion Gap 12 mmol/L (10-20); BUN (Urea Nitrogen) 18 mg/dL (9.8-20.1); Calc. Creatinine Clearance 34 mL/min (70-130); Carbon Dioxide 20 mmol/L (23-31); Chloride 115 mmol/L (98-107); Estimated GFR-MDRD 79; Glucose 84 mg/dL (83-110); Potassium 3.8 mmol/L (3.5-5.1); Sodium 143 mmol/L (136-145)
[2018-05-28] MEDS: cloNIDine 0.1 MG TAB PO SCH ×2 (08:46→21:26)
[2018-05-28] MEDS: hydrALAZINE 25 MG TAB PO SCH ×3 (08:46→21:26)
[2018-05-28] MEDS: Docusate Sodium 100 MG/10 ML UDCUP PO SCH (08:46)
[2018-05-28] MEDS: Spironolactone 25 MG TAB PO SCH (08:46)
[2018-05-28] MEDS ORDERED: Sodium Chloride 0.45% 1,000 ML BAG ONE (20:24)
[2018-05-29] MEDS: Levothyroxine Sodium 50 MCG TAB PO SCH (05:47)
[2018-05-29] MEDS: Sodium Chloride 0.45% 1,000 ML IV SCH (05:50)
[2018-05-29 06:01] LABS: Anion Gap 9 mmol/L (10-20); BUN (Urea Nitrogen) 17 mg/dL (9.8-20.1); Calc. Creatinine Clearance 33 mL/min (70-130); Calcium 7.5 mg/dL (7.8-10.44); Carbon Dioxide 21 mmol/L (23-31); Chloride 111 mmol/L (98-107); Estimated GFR-MDRD 76; Glucose 99 mg/dL (83-110); Potassium 3.2 mmol/L (3.5-5.1); Sodium 138 mmol/L (136-145)
[2018-05-29] MEDS: Spironolactone 25 MG TAB PO SCH (08:07)
[2018-05-29] MEDS: hydrALAZINE 25 MG TAB PO SCH ×3 (08:08→20:39)
[2018-05-29] MEDS: cloNIDine 0.1 MG TAB PO SCH ×2 (08:08→20:39)
[2018-05-29] MEDS: Docusate Sodium 100 MG/10 ML UDCUP PO SCH (08:12)
--- NOTE | 2018-05-29 09:00 | PRG ---
DATE OF SERVICE: 05/28/2018 SUBJECTIVE: The patient says she feels better today. OBJECTIVE: GENERAL: The patient is lying in bed. The head is elevated. She was awake, more talkative, looks m ore comfortable. VITAL SIGNS: Shows temperature of 96.4, pulse 50, respirations 16, O2 sat 95% on room air, blood pre ssure 202/80 earlier this morning prior to her morning medications. Earlier pressure 147/65. HEENT: Mouth, mucous membranes were moist. The tongue looks much better and is pink. Mouth, whitis h material overall much improved. SKIN: Skin turgor is normal. LUNGS: Clear. HEART: Slow regular rhythm. LABORATORY DATA: Her lab shows an H&H of 10.1 and 31.7, white cell count 8800 with 73% segs, 17% lym phocytes, and platelet count of 135,000. Her sodium is 143, potassium 3.8, BUN is 18, creatinine 0.7 , GFR 79. ASSESSMENT: 1. Severe generalized weakness and deconditioning with marked decline in her functional capabilities . A. Marked decline since her discharge from extended care at [facility] on 05/12/2018 where she is presently not ambulatory as of 05/27/2018. B. Requires assistance with all her ADLs. C. Stable as of 05/28/2018. 2. [place] [facility] [place] 05/22/2018 until 05/26/2018 for malignant hypertension with urgency presenting with chest pain with mild elevation of troponins due to demand ischemia. 3. Weight loss. A. A 20 pound weight loss from 05/12/2018 until 05/26/2018. B. Etiology secondary to anorexia, dysphagia. 4. Malignant hypertension. A. Very difficult to manage. B. Prone to orthostatic hypotension. C. Improved as of 05/28/2018. 5. History of atrial fibrillation that converted to sinus rhythm. A. New onset during the hospitalization on 04/10/2018. B. Managed with amiodarone and metoprolol with conversion to sinus rhythm. C. Metoprolol has been stopped due to bradycardia. D. Not a candidate for anticoagulants due to the gastrointestinal bleed. 6. Dysphagia. A. Previously managed with mechanical soft diet and nectar-thickened liquids, no straws. B. Modified barium swallow on 04/17/2018 showed penetration, but no aspiration. C. Stable as of 05/28/2018. 7. Hospitalized [place] [facility] 04/10/2018 to 04/25/2018 for upper gastrointestinal bl eed. A. Etiology probably a diverticular versus small bowel. B. Required transfusion of 2 units of packed RBCs. C. Esophagogastroduodenoscopy showed gastric ulcers with no active bleeding or evidence of recent bl eed. Biopsy showed to be H. pylori positive treated with 2 week course of amoxicillin, clarithromyci n, and pantoprazole. D. Asymptomatic. No evidence of bleeding as of 05/28/2018. 8. Diverticular disease of the colon. 9. Hypothyroidism. 10. Diastolic dysfunction. A. No evidence of acute congestive heart failure as of 05/26/2018. 11. Dehydration. A. Complicated by hypernatremia with a sodium of 151. 1. Improved with sodium down to 143. B. Improved as of 05/28/2018. 12. History of gastroesophageal reflux disease. PLAN: We will continue the IV fluids. We will cut the rate to 60 mL per hour. Continue other care. Advance activities within her tolerance.
--- NOTE | 2018-05-29 12:44 | PRG ---
DATE OF SERVICE: 05/29/2018 SUBJECTIVE: The patient says she feels a little better. She said she ate a little better yesterday. OBJECTIVE: GENERAL: The patient is lying in bed, looks comfortable, is awake and talkative. Her vital signs sh ow a temperature of 96.5, pulse 50, respirations 16, O2 sat 95% on room air, blood pressure 180/77, l ast evening 138/62. Lungs are clear. Heart, regular rate with a blowing systolic murmur at the base of the heart which is chronic. Extremities, no edema. Lab shows an H&H of 10.1 and 31.7, white cell count 8800. Sodium 138, potassium 3.2, BUN 17, creatin ine 0.76, GFR 76, glucose 99. ASSESSMENT: 1. Severe generalized weakness and deconditioning with marked decline in her functional capabilities . A. Marked decline since her discharge from extended care at [facility] on 05/12/2018 where she is presently not ambulatory as of 05/27/2018. B. Requires assistance with all her ADLs. C. Stable as of 05/29/2018. 2. Hospitalized at [facility] from 05/22/2018 until 05/26/2018 for malignant hypertension with urgency presenting with chest pain with mild elevation of troponins due to demand ischemia. 3. Weight loss. A. A 20 pound weight loss from 05/12/2018 until 05/26/2018. B. Etiology from anorexia and dysphagia. 4. Malignant hypertension. A. Very difficult to manage. B. Prone to orthostatic hypotension. C. Improved as of 05/29/2018. 5. History of atrial fibrillation that converted to sinus rhythm. A. New onset during the hospitalization on 04/10/2018. B. Managed with amiodarone and metoprolol with conversion to sinus rhythm. C. Metoprolol has been stopped due to bradycardia. D. Not a candidate for anticoagulants due to the gastrointestinal bleed. 6. Dysphagia. A. Previously managed with mechanical soft diet and nectar-thickened liquids, no straws. B. Modified barium swallow on 04/17/2018 showed penetration, but no aspiration. 7. Hospitalized at [facility] from 04/10/2018 to 04/25/2018 for upper gastrointestinal bl eed. A. Etiology probably a diverticular versus small bowel. B. Required transfusion of 2 units of packed RBCs. C. Esophagogastroduodenoscopy showed gastric ulcers with no active bleeding or evidence of recent bl eed. Biopsy showed to be H. pylori positive treated with 2 week course of amoxicillin, clarithromyci n, and pantoprazole. D. Asymptomatic. No evidence of bleeding as of 05/27/2018. 8. Diverticular disease of the colon. 9. Hypothyroidism. 10. Diastolic dysfunction. A. No evidence of acute congestive heart failure as of 05/29/2018. 11. Dehydration. A. Complicated by hypernatremia with a sodium of 151. B. Resolved with resolution of hypernatremia as of 05/29/2018. 12. History of gastroesophageal reflux disease. PLAN: The patient looks a little better. I have encouraged her to eat. We will stop the IV, start patient on potassium supplement. We will recheck electrolytes tomorrow.
[2018-05-29] MEDS ORDERED: Sodium Chloride 0.45% 1,000 ML BAG ONE (20:24)
[2018-05-30] MEDS: Levothyroxine Sodium 50 MCG TAB PO SCH (05:00)
[2018-05-30 05:27] LABS: Anion Gap 9 mmol/L (10-20); BUN (Urea Nitrogen) 12 mg/dL (9.8-20.1); Calc. Creatinine Clearance 38 mL/min (70-130); Calcium 7.9 mg/dL (7.8-10.44); Carbon Dioxide 22 mmol/L (23-31); Chloride 109 mmol/L (98-107); Estimated GFR-MDRD 82; Glucose 91 mg/dL (83-110); Potassium 3.3 mmol/L (3.5-5.1); Sodium 137 mmol/L (136-145)
[2018-05-30] MEDS: Docusate Sodium 100 MG/10 ML UDCUP PO SCH (08:05)
[2018-05-30] MEDS: Spironolactone 25 MG TAB PO SCH (08:06)
[2018-05-30] MEDS: cloNIDine 0.1 MG TAB PO SCH ×2 (08:06→20:56)
[2018-05-30] MEDS: hydrALAZINE 25 MG TAB PO SCH ×3 (08:06→20:57)
--- NOTE | 2018-05-30 10:47 | PRG ---
DATE OF SERVICE: 05/30/2018 SUBJECTIVE: The patient says she feels a little better. She said she ate a little better yesterday. The patient is requiring maximum assist with any transfers. OBJECTIVE: The patient lying in bed, is awake, looks comfortable, but extremely weak. Her vital sig ns show a temperature 97.8, pulse 46, respirations 16, O2 sat on room air 94, blood pressure 193/81. She has not yet had morning meds. Lungs are clear. Heart, regular rate. Extremities, no edema. L ab shows sodium 137, potassium 3.3, BUN 12, creatinine 0.68, glucose 91. ASSESSMENT: 1. Severe generalized weakness and deconditioning with marked decline in her functional capabilities . A. Marked decline since her discharge from extended care at [facility] on 05/12/2018 where she is presently not ambulatory as of 05/27/2018. B. Requires assistance with all her ADLs. C. Little change, requiring maximum assist with any transfer as of 05/30/2018. 2. Hospitalized at [facility] from 05/22/2018 until 05/26/2018 for malignant hypertension with urgency presenting with chest pain with mild elevation of troponins due to demand ischemia. 3. Weight loss. A. A 20 pound weight loss from 05/12/2018 until 05/26/2018. B. Etiology from anorexia and dysphagia. 4. Malignant hypertension. A. Very difficult to manage. B. Prone to orthostatic hypotension. C. Stable as of 05/30/2018. 5. History of atrial fibrillation that converted to sinus rhythm. A. New onset during the hospitalization on 04/10/2018. B. Managed with amiodarone and metoprolol with conversion to sinus rhythm. C. Metoprolol has been stopped due to bradycardia. D. Not a candidate for anticoagulants due to the gastrointestinal bleed. 6. Dysphagia. A. Previously managed with mechanical soft diet and nectar-thickened liquids, no straws. B. Modified barium swallow on 04/17/2018 showed penetration, but no aspiration. 7. Hospitalized at [facility] from 04/10/2018 to 04/25/2018 for upper gastrointestinal bl eed. A. Etiology probably a diverticular versus small bowel. B. Required transfusion of 2 units of packed RBCs. C. Esophagogastroduodenoscopy showed gastric ulcers with no active bleeding or evidence of recent bl eed. Biopsy showed to be H. pylori positive treated with 2 week course of amoxicillin, clarithromyci n, and pantoprazole. D. Asymptomatic. No evidence of bleeding as of 05/27/2018. 8. Diverticular disease of the colon. 9. Hypothyroidism. 10. Diastolic dysfunction. A. No evidence of acute congestive heart failure as of 05/30/2018. 11. Dehydration. A. Complicated by hypernatremia with a sodium of 151. B. Resolved with resolution of hypernatremia as of 05/29/2018. 12. History of gastroesophageal reflux disease. PLAN: The hypokalemia is improving. Continue to encourage the patient to eat and continue to work w ith physical therapy. The patient is still extremely weak and has a failure to thrive. Her long-ter m prognosis is poor. When visiting with her daughter we will talk about that possibility of hospice care once she goes home. The patient would like to retain the León catheter a little longer.
[2018-05-31] MEDS: Levothyroxine Sodium 50 MCG TAB PO SCH (05:00)
[2018-05-31] MEDS: Docusate Sodium 100 MG/10 ML UDCUP PO SCH (08:35)
[2018-05-31] MEDS: Spironolactone 25 MG TAB PO SCH (08:35)
[2018-05-31] MEDS: cloNIDine 0.1 MG TAB PO SCH ×2 (08:35→21:43)
[2018-05-31] MEDS: hydrALAZINE 25 MG TAB PO SCH ×3 (08:36→21:43)
[2018-05-31] MEDS: Acetaminophen 325 MG TAB PO SCH ×3 (08:38→21:44)
--- NOTE | 2018-05-31 08:56 | PRG ---
DATE OF SERVICE: 05/31/2018 SUBJECTIVE: The patient told the nurse she does not want to get up because she is just sore all over . She is using the Tylenol, but it is on a p.r.n. not sure it is helping. We will try scheduling th is to see if this will help. The patient has not been taking a mechanical soft diet. She will pocke t these foods. Speech therapist has recommended going back to pureed diet which she has already been ordered. OBJECTIVE: The patient is lying in bed. She is weak, but awake and talkative. She appears comforta ble. Her temperature is 96.7, pulse 50, respirations 16, O2 sat 96% on room air, blood pressure 168/ 62. Lungs are clear. Heart, regular rate. Her weight yesterday was up to 93 pounds from a low of 8 6. Her urinary output over the last 24 hours has been 275. ASSESSMENT: 1. Severe generalized weakness and deconditioning with marked decline in her functional capabilities . A. Marked decline since her discharge from extended care at [facility] on 05/12/2018 where she is presently not ambulatory as of 05/27/2018. B. Requires assistance with all her ADLs. C. Little change, still primarily wants to stay in bed, occasionally will get up in a chair with coa nichole as of 05/31/2018. 2. Hospitalized at [facility] from 05/22/2018 until 05/26/2018 for malignant hypertension with urgency presenting with chest pain with mild elevation of troponins due to demand ischemia. 3. Weight loss. A. A 20 pound weight loss from 05/12/2018 until 05/26/2018. B. Etiology from anorexia and dysphagia. C. Weight is up from 86 to 93 pounds as of 05/30/2018. This was after she had received the IV fluid s. 4. Malignant hypertension. A. Very difficult to manage. B. Prone to orthostatic hypotension. C. Improved as of 05/31/2018. 5. History of atrial fibrillation that converted to sinus rhythm. A. New onset during the hospitalization on 04/10/2018. B. Managed with amiodarone and metoprolol with conversion to sinus rhythm. C. Metoprolol has been stopped due to bradycardia. D. Not a candidate for anticoagulants due to the gastrointestinal bleed. 6. Dysphagia. A. Previously managed with mechanical soft diet and nectar-thickened liquids, no straws. B. Modified barium swallow on 04/17/2018 showed penetration, but no aspiration. C. Has not tolerated mechanical soft diet, is restarted on a pureed diet as of 05/30/2018. 7. Hospitalized at [facility] from 04/10/2018 to 04/25/2018 for upper gastrointestinal bl eed. A. Etiology probably a diverticular versus small bowel. B. Required transfusion of 2 units of packed RBCs. C. Esophagogastroduodenoscopy showed gastric ulcers with no active bleeding or evidence of recent bl eed. Biopsy showed to be H. pylori positive treated with 2 week course of amoxicillin, clarithromyci n, and pantoprazole. D. Asymptomatic. No evidence of bleeding as of 05/27/2018. 8. Diverticular disease of the colon. 9. Hypothyroidism. 10. Diastolic dysfunction. A. No evidence of acute congestive heart failure as of 05/31/2018. 11. Dehydration. A. Complicated by hypernatremia with a sodium of 151. B. Resolved with resolution of hypernatremia as of 05/29/2018. 12. History of gastroesophageal reflux disease. 13. Failure to thrive. PLAN: The patient will be placed on her Tylenol on a scheduled basis 650 mg q.i.d. and see if this w ill help some with her discomfort. We will gently try to progress her activities. I am not sure she will tolerate this. The patient is not yet wanting to get rid of the León catheter. I have not se en the daughter to visit with her. Later will visit with her and discuss hospice care. The patient' s outlook is not good. It is doubtful that she will be able to maintain her fluid and nutritional re quirements and certainly does not want a feeding tube, nor do I think this would make much difference . She is just gradually declining. We will continue efforts.
[2018-06-01] MEDS: Acetaminophen 325 MG TAB PO SCH ×4 (02:47→20:11)
[2018-06-01] MEDS: Levothyroxine Sodium 50 MCG TAB PO SCH (05:28)
[2018-06-01 05:36] LABS: Anion Gap 10 mmol/L (10-20); BUN (Urea Nitrogen) 13 mg/dL (9.8-20.1); Calc. Creatinine Clearance 37 mL/min (70-130); Carbon Dioxide 21 mmol/L (23-31); Chloride 109 mmol/L (98-107); Estimated GFR-MDRD 79; Glucose 94 mg/dL (83-110); Potassium 4.3 mmol/L (3.5-5.1); Sodium 136 mmol/L (136-145)
[2018-06-01] MEDS: hydrALAZINE 25 MG TAB PO SCH ×3 (08:40→20:10)
[2018-06-01] MEDS: Spironolactone 25 MG TAB PO SCH (08:40)
[2018-06-01] MEDS: Docusate Sodium 100 MG/10 ML UDCUP PO SCH (08:40)
[2018-06-01] MEDS: cloNIDine 0.1 MG TAB PO SCH ×2 (08:41→20:10)
--- NOTE | 2018-06-01 09:28 | PRG ---
DATE OF SERVICE: 06/01/2018 SUBJECTIVE: The patient said she is alright this morning. The patient is not wanting to get up and is not eating much. OBJECTIVE: The patient looks comfortable lying in bed. She is awake and talkative. Her vital signs show temperature 96.7, pulse 47, blood pressure 211/77. Last night, pressure was 160/72 and prior t o that 138/65. Her O2 sat 94% on room air and respirations 16. Lungs clear. Heart, regular rate. Extremities, no edema. LABORATORY DATA: Her labs show sodium 136 and potassium 4.3. Her BUN is 13, creatinine 0.7, GFR 79. Her urinary output has been only 150. ASSESSMENT: 1. Severe generalized weakness and deconditioning with marked decline in her functional capabilities . A. Marked decline since her discharge from [facility] care at [facility] on 05/12/2018 where she is presently not ambulatory as of 05/27/2018. B. Requires assistance with all her ADLs. C. Little change. Primarily wanted to stay in bed, eating very little as of 06/01/2018. 2. Hospitalized at [facility] from 05/22/2018 until 05/26/2018 for malignant hypertension with urgency presenting with chest pain with mild elevation of troponins due to demand ischemia. 3. Weight loss. A. A 20 pound weight loss from 05/12/2018 until 05/26/2018. B. Etiology from anorexia and dysphagia. C. Weight is up from 86 to 93 pounds as of 05/30/2018. This was after she had received the IV fluid s. 4. Malignant hypertension. A. Very difficult to manage. B. Prone to orthostatic hypotension. C. Stable as of 06/01/2018. 5. History of atrial fibrillation that converted to sinus rhythm. A. New onset during the hospitalization on 04/10/2018. B. Managed with amiodarone and metoprolol with conversion to sinus rhythm. C. Metoprolol has been stopped due to bradycardia. D. Not a candidate for anticoagulants due to the gastrointestinal bleed. 6. Dysphagia. A. Previously managed with mechanical soft diet and nectar-thickened liquids, no straws. B. Modified barium swallow on 04/17/2018 showed penetration, but no aspiration. C. Has not tolerated mechanical soft diet, is restarted on a pureed diet as of 05/30/2018. 7. Hospitalized at [facility] from 04/10/2018 to 04/25/2018 for upper gastrointestinal bl eed. A. Etiology probably a diverticular versus small bowel. B. Required transfusion of 2 units of packed RBCs. C. Esophagogastroduodenoscopy showed gastric ulcers with no active bleeding or evidence of recent bl eed. Biopsy showed to be H. pylori positive treated with 2 week course of amoxicillin, clarithromyci n, and pantoprazole. D. Asymptomatic. No evidence of bleeding as of 06/01/2018. 8. Diverticular disease of the colon. 9. Hypothyroidism. 10. Diastolic dysfunction. A. No evidence of acute congestive heart failure as of 06/01/2018. 11. Dehydration. A. Complicated by hypernatremia with a sodium of 151. B. Resolved with resolution of hypernatremia as of 05/29/2018. 12. History of gastroesophageal reflux disease. 13. Failure to thrive. A. Very weak, only wanted to stay in bed, prefers to keep the catheter in, and eating very little as of 06/01/2018. PLAN: We will continue to encourage the patient. Continue to manage her comfort. We will stop the potassium supplementations, as potassium is up to 4.3. We will talk to her daughter about hospice ca re.
[2018-06-02] MEDS: Acetaminophen 325 MG TAB PO SCH ×4 (04:04→20:07)
[2018-06-02] MEDS: Levothyroxine Sodium 50 MCG TAB PO SCH (05:21)
[2018-06-02] MEDS: Docusate Sodium 100 MG/10 ML UDCUP PO SCH (08:10)
[2018-06-02] MEDS: hydrALAZINE 25 MG TAB PO SCH ×3 (08:12→20:06)
[2018-06-02] MEDS: Spironolactone 25 MG TAB PO SCH (08:12)
[2018-06-02] MEDS: cloNIDine 0.1 MG TAB PO SCH ×2 (08:12→20:07)
[2018-06-02 11:14] LABS: Anion Gap 11 mmol/L (10-20); BUN (Urea Nitrogen) 15 mg/dL (9.8-20.1); Calc. Creatinine Clearance 36 mL/min (70-130); Carbon Dioxide 21 mmol/L (23-31); Chloride 108 mmol/L (98-107); Estimated GFR-MDRD 76; Glucose 105 mg/dL (83-110); Potassium 3.9 mmol/L (3.5-5.1); Sodium 136 mmol/L (136-145)
[2018-06-02 11:28] LABS: Anisocytosis SLIGHT = 6-15 cells (100X) (0-5/hpf); Elliptocytes SLIGHT = 2-5 cells (100X) (0-1/hpf); Eosinophils 1 % (0-10); Hemoglobin 10.1 g/dL (12.0-16.0); Lymphocytes 15 % (21-51); MDiff Complete? YES; Mean Corpuscular Hemoglobin 28.8 pg (27.0-31.0); Mean Corpuscular Volume 87.2 fL (78.0-98.0); Mean Platelet Volume 7.1 fL (7.4-10.4); Monocytes 6 % (0-10); Neutrophil 78 % (42-75); Platelet Count 242 thou/uL (130-400); Poikilocytosis SLIGHT = 6-15 cells (100X) (0-5/hpf); RBC Distribution Width 15.5 % (11.5-14.5); Red Blood Cell (RBC) Count 3.49 mill/uL (4.20-5.40); Target Cells SLIGHT = 2-5 cells (100X) (0-1/hpf); Tear Drops SLIGHT = 2-5 cells (100X) (0-1/hpf); White Blood Cell (WBC) Count 7.5 thou/uL (4.8-10.8)
[2018-06-03] MEDS: Acetaminophen 325 MG TAB PO SCH ×4 (02:40→20:35)
[2018-06-03] MEDS: Levothyroxine Sodium 50 MCG TAB PO SCH (05:44)
[2018-06-03] MEDS: Spironolactone 25 MG TAB PO SCH (08:15)
[2018-06-03] MEDS: Docusate Sodium 100 MG/10 ML UDCUP PO SCH (08:15)
[2018-06-03] MEDS: cloNIDine 0.1 MG TAB PO SCH ×2 (08:16→20:36)
[2018-06-03] MEDS: hydrALAZINE 25 MG TAB PO SCH ×3 (08:16→20:36)
--- NOTE | 2018-06-03 12:49 | PRG ---
DATE OF SERVICE: 06/02/2018 SUBJECTIVE: This morning, the patient had been out of bed. She had walked a short distance down the hallway with a walker and help from physical therapist and then came back and sit in a chair. She h ad eaten just a little bit. She was awake and said she was feeling pretty good. OBJECTIVE: VITAL SIGNS: Her temperature was 96.6, pulse 50, blood pressure 168/73, respirations 14, O2 sat 94% on room air. LUNGS: Clear. HEART: Slow, regular rhythm. Later in the morning around 9:30, she was still sitting in a chair and became unresponsive. Her bloo d pressure was 149 and dropped to 77/42. She was placed back in bed and gradually became awake and p ressure stephan to 99/54. Rechecked her and she was awake and talkative and said she felt alright, was not short of breath and had no chest pain. She had a good bounding radial pulse. The patient had carvalho d a probable severe orthostatic hypotensive episode that was resolving. We will keep her at bed rest . ASSESSMENT: 1. Severe generalized weakness and deconditioning with marked decline in her functional capabilities . A. Marked decline since her discharge from extended care at [facility] on 05/12/2018 where she is presently not ambulatory as of 05/27/2018. B. Requires assistance with all her ADLs. C. The patient had gotten up in a chair and walked a short distance with the physical therapist in at tendance and use of a walker as of 06/02/2018. 2. Hospitalized at [facility] from 05/22/2018 until 05/26/2018 for malignant hypertension with urgency presenting with chest pain with mild elevation of troponins due to demand ischemia. 3. Weight loss. A. A 20 pound weight loss from 05/12/2018 until 05/26/2018. B. Etiology from anorexia and dysphagia. C. Weight is up from 86 to 93 pounds as of 05/30/2018. This was after she had received the IV fluid s. 4. Malignant hypertension. A. Very difficult to manage. B. Prone to orthostatic hypotension. C. Complicated by episode of unresponsiveness and hypotension after walking, sitting up for a long t mamadou. The resolution of symptoms after lying down, episode secondary to orthostatic hypotension as of 06/02/2018. 5. History of atrial fibrillation that converted to sinus rhythm. A. New onset during the hospitalization on 04/10/2018. B. Managed with amiodarone and metoprolol with conversion to sinus rhythm. C. Metoprolol has been stopped due to bradycardia. D. Not a candidate for anticoagulants due to the gastrointestinal bleed. 6. Dysphagia. A. Previously managed with mechanical soft diet and nectar-thickened liquids, no straws. B. Modified barium swallow on 04/17/2018 showed penetration, but no aspiration. C. Has not tolerated mechanical soft diet, is restarted on a pureed diet as of 05/30/2018. 7. Hospitalized at [facility] from 04/10/2018 to 04/25/2018 for upper gastrointestinal bl eed. A. Etiology probably a diverticular versus small bowel. B. Required transfusion of 2 units of packed RBCs. C. Esophagogastroduodenoscopy showed gastric ulcers with no active bleeding or evidence of recent bl eed. Biopsy showed to be H. pylori positive treated with 2 week course of amoxicillin, clarithromyci n, and pantoprazole. D. Asymptomatic. No evidence of bleeding as of 06/01/2018. 8. Diverticular disease of the colon. 9. Hypothyroidism. 10. Diastolic dysfunction. A. No evidence of acute congestive heart failure as of 06/01/2018. 11. Dehydration. A. Complicated by hypernatremia with a sodium of 151. B. Resolved with resolution of hypernatremia as of 05/29/2018. 12. History of gastroesophageal reflux disease. 13. Failure to thrive. A. Very weak, only wanted to stay in bed, prefers to keep the catheter in, and eating very little as of 06/01/2018. PLAN: We will limit periods of time, patient is up and check blood pressures for orthostatic changes . We will leave the patient in bed today. Received word from skilled nursing that they have agreed to take her whenever she is ready for discharge. At present, we will continue to observe her here after this orthostatic episode. The patient's overall prognosis still remains poor.
--- NOTE | 2018-06-03 12:52 | PRG ---
DATE OF SERVICE: 06/03/2018 SUBJECTIVE: The patient said she feels a little better today. She has not had any more the syncopal episode. The syncopal episode was felt to be secondary to severe orthostatic hypotensive episode. The patient tells the nurse that she is tired and just wants to go home and . Arrangements have b een made for the senior living and they are willing to accept her there. OBJECTIVE: GENERAL: The patient is lying in bed, looks comfortable. VITAL SIGNS: Show a temperature of 96.7, pulse of 50, respirations 16, O2 sat 94% on room air, blood pressure supine 197/85. LUNGS: Clear. HEART: Regular rate. Labs done yesterday showed H and H of 10.1 and 30.5, stable. White cell count 7500 with 78% segs, 15 % lymphocytes, platelet count of 242,000. Sodium 136, potassium 3.9, BUN 15, creatinine 0.76, GFR is 76, glucose 105. ASSESSMENT: 1. Severe generalized weakness and deconditioning with marked decline in her functional capabilities . A. Marked decline since her discharge from extended care at [facility] on 05/12/2018 where she is presently not ambulatory as of 05/27/2018. B. Weakness persists yesterday, walked short distance, sit up in a chair, but the upright position r esulted in a severe orthostatic episode with unresponsiveness and hypotension that resolved when plac ed supine on 06/02/2018. The patient is essentially (0228) bed as of 06/03/2018. C. Little change. Primarily wanted to stay in bed, eating very little as of 06/01/2018. 2. Hospitalized at [facility] from 05/22/2018 until 05/26/2018 for malignant hypertension with urgency presenting with chest pain with mild elevation of troponins due to demand ischemia. 3. Weight loss. A. A 20 pound weight loss from 05/12/2018 until 05/26/2018. B. Etiology from anorexia and dysphagia. C. Weight is up from 86 to 93 pounds as of 05/30/2018. This was after she had received the IV fluid s. 4. Malignant hypertension. A. Very difficult to manage. B. Complicated by severe orthostatic hypotensive episode on 06/02/2018. C. Stable as of 06/03/2018. 5. History of atrial fibrillation that converted to sinus rhythm. A. New onset during the hospitalization on 04/10/2018. B. Managed with amiodarone and metoprolol with conversion to sinus rhythm. C. Metoprolol has been stopped due to bradycardia. D. Not a candidate for anticoagulants due to the gastrointestinal bleed. 6. Dysphagia. A. Previously managed with mechanical soft diet and nectar-thickened liquids, no straws. B. Modified barium swallow on 04/17/2018 showed penetration, but no aspiration. C. Has not tolerated mechanical soft diet, is restarted on a pureed diet as of 05/30/2018. 7. Hospitalized at [facility] from 04/10/2018 to 04/25/2018 for upper gastrointestinal bl eed. A. Etiology probably a diverticular versus small bowel. B. Required transfusion of 2 units of packed RBCs. C. Esophagogastroduodenoscopy showed gastric ulcers with no active bleeding or evidence of recent bl eed. Biopsy showed to be H. pylori positive treated with 2 week course of amoxicillin, clarithromyci n, and pantoprazole. D. Asymptomatic. No evidence of bleeding as of 06/01/2018. 8. Diverticular disease of the colon. 9. Hypothyroidism. 10. Diastolic dysfunction. A. No evidence of acute congestive heart failure as of 06/03/2018. 11. Dehydration. A. Complicated by hypernatremia with a sodium of 151. B. Resolved with resolution of hypernatremia as of 05/29/2018. 12. History of gastroesophageal reflux disease. 13. Failure to thrive. A. Persists with extreme weakness and episodes of orthostatic hypotension when upright. B. Persists as of 06/03/2018. 14. Severe orthostatic hypotension with an episode of unresponsiveness and hypotension on 06/02/2018 . A. No recurrence as of 06/03/2018. PLAN: We will discontinue catheter to remove risk of infection. We will continue palliative measure s. I anticipate movement to the senior living in the next few days. Will talk with family about hosp ice care.
[2018-06-04] MEDS: Acetaminophen 325 MG TAB PO SCH ×4 (03:10→20:27)
[2018-06-04] MEDS: Levothyroxine Sodium 50 MCG TAB PO SCH (05:43)
[2018-06-04] MEDS: Docusate Sodium 100 MG/10 ML UDCUP PO SCH (08:10)
[2018-06-04] MEDS: Spironolactone 25 MG TAB PO SCH (08:11)
[2018-06-04] MEDS: cloNIDine 0.1 MG TAB PO SCH ×2 (08:11→20:27)
[2018-06-04] MEDS: hydrALAZINE 25 MG TAB PO SCH ×3 (08:12→20:26)
[2018-06-05] MEDS: Acetaminophen 325 MG TAB PO SCH ×2 (02:43→08:35)
[2018-06-05] MEDS: Levothyroxine Sodium 50 MCG TAB PO SCH (05:20)
[2018-06-05 07:22] VITALS: BP 166/72; TEMP 97.2
[2018-06-05] MEDS: hydrALAZINE 25 MG TAB PO SCH (08:32)
[2018-06-05] MEDS: cloNIDine 0.1 MG TAB PO SCH (08:32)
[2018-06-05] MEDS: Spironolactone 25 MG TAB PO SCH (08:32)
[2018-06-05] MEDS: Docusate Sodium 100 MG/10 ML UDCUP PO SCH (08:32)
--- NOTE | 2018-06-05 09:20 | DIS ---
DATE OF ADMISSION: 05/26/2018 DATE OF DISCHARGE: 06/05/2018 from [facility] extended care. FINAL DIAGNOSES: 1. Severe generalized weakness and deconditioning with marked decline in her functional capabilities . A. Marked decline since her discharge from extended care at [facility] on 05/12/2018. Present ly not ambulatory. B. Persists with no gain in her strength and continued decline as of 06/05/2018. 2. Hospitalized at [facility] from 07/22/2017 until 07/26/2017 for malignant hypertension with urgency, presenting with chest pain, mild elevation of troponin is due to demand ischemia. 3. Malignant hypertension. A. Refractory. B. Complicated by episodes of orthostatic hypotension with syncope. 4. Failure to thrive. A. Complicated by weight loss. B. Complicated by anorexia and dysphagia. C. Complicated by extreme weakness. Intolerant of even sitting up for any length of time. 5. Diastolic dysfunction. A. No evidence of acute congestive heart failure. 6. Episode of dehydration. A. Complicated by hypernatremia with sodium 151 and mild prerenal azotemia. B. Resolved with IV fluids as of 05/29/2018. 7. Dysphagia. A. Modified barium swallow on 04/17/2018 showed penetration, but no aspiration. B. On pureed diet with nectar thickened liquids, intolerant of mechanical soft diet. 8. Hospitalized at [facility] from 04/10/2018 until 04/25/2018 for upper gastrointestinal bleed. A. Etiology probably diverticular versus small bowel. B. Required transfusion of 2 units of packed RBCs. C. EGD showed gastric ulcers with no active bleeding or evidence of recent bleed. Biopsy showed H. pylori positive. Treated with a 2-week course of amoxicillin, clarithromycin, and pantoprazole. D. No recurrence of bleeding as of 06/05/2018. 9. Hypothyroidism. 10. Diverticular disease of the colon. 11. Code status: DNR, has elected hospice care. SUMMARY: The patient is an 88-year-old white female who has a history of refractory hypertension alphonse t has been very difficult to manage and complicated by episodes of orthostasis with syncope. She als o has a history of atrial fibrillation, paroxysmal. She is not a candidate for anticoagulants due to recent GI bleed. She has hypothyroidism and severe dysphagia. The modified barium swallow in Sept ember showed penetration and difficulty with oropharyngeal dysphagia, managed with pureed diet. The patient also has been hospitalized at [facility] 04/10/2018 to 04/25/2018 for upper GI ble ed that was felt to be either diverticular or small bowel, required 2 units of packed RBCs. EGD show ed gastric ulcers or H. pylori positive. There is no evidence of a recent bleed from these. She was treated with amoxicillin, clarithromycin, and pantoprazole and has been asymptomatic. She has diast olic dysfunction with no evidence of congestive failure. She has been left extremely weak. She had been hospitalized at [facility] for extended care following her GI bleeds and improved and was discharged home, staying with her daughter under the care of home health on 05/12/2018. She was ambu lating some and eating a little bit. The patient had to be rehospitalized at [facility] f rom 05/22/2018 until 05/26/2018 for malignant hypertension with urgency, presenting with chest pain a nd mild elevation of troponin due to demand ischemia. She again was left extremely weak and essentia y bed confined with a 20 pound weight loss from 05/12/2018 until 05/26/2018. She was rehospitalize d at [facility] on 05/26/2018 until 06/05/2018. Physical therapy tried working with her, along with Occupational Therapy, but this was very intermittent. At times she would tolerate sitting up i n a chair and able to walk short distance, but gradually her strength declined [facility]. Initially, she was not eating and was found to be dehydrated with some prerenal az otemia and hypernatremia with a sodium up to 151. She was cautiously hydrated with IV fluids with co rrection of the hypernatremia and prerenal azotemia. She gained a couple pounds with the hydration. She had been tried on mechanical soft diet, but did not tolerate this. Went back to a pureed diet, but she ate very, very little. Her general condition was one of decline. Her blood pressure remaine d very refractory with episodes of pressures up to 220. With multiple medications this seemed to be a little better and then she had an episode while sitting up in a chair where she became unresponsive secondary to severe orthostatic hypotensive episode. Once put back in bed, her pressure gradually r ose and she was awakened. The patient's condition was one of continual decline. She was eating very little, was very weak and just remained in bed and repeatedly told the nurse that she just wanted to go home and . I visited with her daughter, Abran, who recognizes her mom's declined. Arrangem ents have been made for the patient to be managed in the longterm. The patient has had marked de choi secondary to a failure to thrive with weight loss, anorexia, dysphagia and severe weakness. I had recommended the patient enter the longterm under hospice care, which the patient's wishes are to . She is just worn out. Her daughter is in agreement with this. The patient will be dischar ge to [facility] on 06/05/2018. [facility] will be contacted to sweet pickle maker on he r care. DIET: Pureed diet with nectar thickened liquids. Bed rest. May be up in a chair within her toleran ce. MEDICATIONS: Tylenol 325 mg 2 every 4 hours as needed for pain, clonidine 0.2 mg b.i.d., docusate so dium liquid 50 mg daily, hydralazine 100 mg t.i.d., levothyroxine 50 mcg daily, hydralazine 100 mg t. i.d., morphine concentrate 20 mL per mL, 0.25-1 mL every 2 hours as needed for pain. Consult [facility]. CODE STATUS: DNR. Follow up within a week.
--- NOTE | 2018-06-05 11:14 | ADD-DIS ---
ADDENDUM MEDICATIONS: Isosorbide mononitrate 30 mg daily and levothyroxine 50 mcg daily.
== END 2018-06-05 13:30 | disposition hospice, inpatient (51) | DRG 948 ==
LOC: MADMS 16:01
PROVIDERS: ADMIT Family Medicine; ATTEND Family Medicine
DX: R53.1 Weakness (principal); I24.8 Other forms of acute ischemic heart disease; E87.0 Hyperosmolality and hypernatremia; I10 Essential (primary) hypertension; K21.9 Gastro-esophageal reflux disease without esophagitis; E03.9 Hypothyroidism, unspecified; E78.5 Hyperlipidemia, unspecified; Z66 Do not resuscitate; R63.4 Abnormal weight loss; Z51.5 Encounter for palliative care; R63.0 Anorexia; R13.10 Dysphagia, unspecified; K57.30 Diverticulosis of large intestine without perforation or abscess without bleeding; E86.0 Dehydration; I95.1 Orthostatic hypotension; K25.9 Gastric ulcer, unspecified as acute or chronic, without hemorrhage or perforation; R62.7 Adult failure to thrive; R79.89 Other specified abnormal findings of blood chemistry; I48.0 Paroxysmal atrial fibrillation; R13.12 Dysphagia, oropharyngeal phase
CPT/HCPCS: 36415; 80048; 85025; 90471; 90662; 90670; G0008; G0009; G8978-GP-CM; G8979-GP-CJ; G8987-GO-CM; G8988-GO-CJ